=== PATIENT | female | born 1960 | race Caucasian/White ===

== ENCOUNTER 2019-04-19 05:45 | Inpatient (IN) | payer MEDICARE, OTHER ==
[2019-04-19 06:54] VITALS: BP 100/62
[2019-04-19] MEDS ORDERED: Maalox 30 mL Cup PO PRN (07:04)
[2019-04-19] MEDS ORDERED: Magnesium Hydroxide (MOM) 30 mL UDC PO PRN (07:04)
[2019-04-20] MEDS ORDERED: Pneumococcal Vaccine 0.5 mL Vial IM ONE (10:00)
--- NOTE | 2019-04-20 10:04 | Progress Notes ---
DATE: SUBJECTIVE: Chart was reviewed and the patient interviewed. Also discussed the patient's condition with the staff and reviewed records and labs. The patient continued to be exhibiting manic behavior and this morning, the patient woke up early and the patient was dancing and was restless and was not able to follow directions. The patient also was easily irritable and is still having severe mood swings. Otherwise, the patient is compliant with taking her medications with no side effects of medications. ASSESSMENT: The patient is still exhibiting manic behavior and is still in irritable mood. TREATMENT PLAN: Continue to monitor behavior and condition closely. Also, continue adjusting psychotropic medications and working on behavioral modification. Also, we will add Seroquel in a dose of 50 mg twice a day and follow up. JOB# [id number]
--- NOTE | 2019-04-20 12:30 | History and Physical ---
History of Present Illness - HPI Chief Complaint: transfer from [facility] medically cleared HPI: This is a 58-year old female transferred to [facility] who is medically cleared. Patient has a past medical history of schizophrenia, encephalopathy. Vital Signs: Last Vital Signs Temp 97.8 F 04/20/19 06:26 Pulse 81 04/20/19 06:26 Resp 19 04/20/19 06:26 BP 102/57 04/20/19 06:26 Pulse Ox 97 04/20/19 06:26 Past Medical History Other History: schizophrenia Social History Smoke: No Alcohol: None Drugs: None Lives: [facility] - Medications Home Medications: Home Medication Medication Instructions Recorded Type Benztropine [Cogentin] 1 mg PO DAILY 04/19/19 History OLANZapine [ZyPREXA] 5 mg PO BID 04/19/19 History Simvastatin [Zocor*] 20 mg PO HS 04/19/19 History hydrOXYzine Pamoate [Vistaril] 25 mg PO BID 04/19/19 History traZODone HCl [Desyrel*] 50 mg PO HS 04/19/19 History - Allergies Allergies/Adverse Reactions: Allergies Allergy/AdvReac Type Severity Reaction Status Date / Time No Known Allergies Allergy Verified 04/19/19 06:53 Review of Systems - Review of Systems Constitutional: Report: No Significant Eyes: Report: No Significant Respiratory: Report: No Significant Cardiovascular: Report: No Significant Neurological: Report: No Significant Physical Exam - Physical Exam HEENT: Report: Ears Nose Throat within normal limits Neck: Report: Within normal limits Cardiovascular Systems: Report: +s1/s2 noted, Regular, Rate and Rhythm Respiratory: Report: Breath Sounds are within normal limits Abdomen: Report: Non-tender to palpation Back: Report: Inspection of back is within normal limits. Skin: Report: Warm, Dry Neuro/Psych: Report: Mood affect is within normal limits - Assessment Assessment: schizophrenia hx encephalopathy - Plan Plan: fall precautions continue home meds monitor patient daily
--- NOTE | 2019-04-20 21:12 | Psychiatric Evaluation ---
DATE OF SERVICE: 04/19/2019 PSYCHIATRIC INITIAL EVALUATION AGE: 58. SEX: Female. PHYSICIAN: Dr. Chavez. CHIEF COMPLAINT: Confusion and grave disability. HISTORY OF PRESENT ILLNESS: The patient is a 58-year-old female who was transferred from [facility] to [facility]. The patient eventually was dropped from a ____ to the hospital. The person who was driving her from the ____ did not give any report and took off after she dropped her. The patient is confused and she is not able to give any questions. The patient also was paranoid during my interview. The patient also was not able to give any information including when was last time she ate or drank and she was not able to make any sense. The patient also told me that she has one son, but she was not able to give me any information about her son and was not able to get any other information from the patient. The patient was diagnosed with encephalopathy. She was not able to give me any other information at this time. She also seems to be paranoid and kept looking out of the window during my interview. PAST PSYCHIATRIC HISTORY: Not known. PAST MEDICAL HISTORY: The patient did not mention anything and unable to know because of her poor historian. SOCIAL HISTORY: Unknown at this time, but the patient said that she has 1 son and she does not know where he lives and she could not give me any other details. ALLERGIES: No known allergies. MENTAL STATUS EXAMINATION: The patient appears older than her stated age. Unkempt. Long hair and the patient kept moving her hair from one side to another and at times it was covering her face. The patient seems to be preoccupied and paranoid and kept looking outside the window. Her thought processes are with poverty of speech and also disorganized. The patient did not answer question regarding auditory or visual hallucination, but seems to be actively responding and preoccupied and paranoid. The patient denied suicidal or homicidal ideations. The patient is alert, but confused and seems to be disoriented to place, person and situation. Unable to assess her memory at this time because the patient was not able to answer any of my questions because of her confusion. Poor insight and poor judgment. ASSESSMENT: PRIMARY DIAGNOSIS: Unspecified psychosis. TREATMENT PLAN: We will monitor the patient's behavior and condition closely. We will try to reevaluate the patient and try to get more information from the patient when clear. Also, we will give the patient small dose of Risperdal and hopefully that will help with her psychosis. ESTIMATED LENGTH OF STAY: 5-7 days. PATIENT'S STRENGTHS AND WEAKNESSES: The patient's strength is not clear at this time. Weaknesses is poor historian and inability to give information because of her confusion. AFTER DISCHARGE PLAN: The patient might need placement and outpatient treatment and followup. We will continue as an outpatient. JOB# [id number]
--- NOTE | 2019-04-21 14:14 | Internal Medicine Prog Note ---
Internal Medicine Subjective - Subjective Service Date: 04/21/19 Patient seen and examined:: with staff Patient is:: awake, verbal, agitated, confused Patient Complaints of:: other (Hx of Schizophrenia.) Per staff patient has:: no adverse event, no episodes of fall Internal Medicine Objective - Physical Exam Vitals and I&O: Vital Signs Temp 97.7 F 04/21/19 06:19 Pulse 68 04/21/19 06:19 Resp 20 04/21/19 06:19 BP 116/67 04/21/19 06:19 Pulse Ox 96 04/21/19 06:19 Intake & Output 04/20/19 04/21/19 04/21/19 18:59 06:59 18:59 Intake Total 1100 600 Balance 1100 600 Intake: Oral 740 600 Other 360 Other: # Voids 4 2 # Bowel Movements 1 0 Active Medications: Current Medications Acetaminophen (Tylenol) 650 mg PO Q4HR PRN PRN Reason: Mild Pain / Temp above 100 Stop: 06/18/19 07:03 Al Hydrox/Mg Hydrox/Simethicone (Maalox) 30 ml PO Q4HR PRN PRN Reason: GI DISTRESS Stop: 06/18/19 07:03 Benztropine Mesylate (Cogentin) 1 mg PO DAILY [facility] Stop: 06/19/19 08:59 Last Admin: 04/21/19 08:58 Dose: 1 mg Hydroxyzine Pamoate (Vistaril) 25 mg PO BID ON [facility] OF [facility]; Protocol Stop: 06/19/19 08:59 Last Admin: 04/21/19 08:59 Dose: 25 mg Lorazepam (Ativan) 0.5 mg PO Q4HR PRN; Protocol PRN Reason: Agitation Stop: 05/19/19 07:03 Last Admin: 04/21/19 08:59 Dose: 0.5 mg Magnesium Hydroxide (Milk Of Magnesia) 30 ml PO HS PRN PRN Reason: Constipation Olanzapine (Zyprexa) 5 mg PO BID ON LICENSE OF [facility]; Protocol Stop: 06/18/19 08:59 Last Admin: 04/21/19 08:58 Dose: 5 mg Quetiapine Fumarate (Seroquel) 50 mg PO BID ON LICENSE OF [facility]; Protocol Stop: 06/19/19 08:59 Last Admin: 04/21/19 08:57 Dose: 50 mg Simvastatin (Zocor) 20 mg PO HS ON LICENSE OF [facility]; Protocol Stop: 06/18/19 20:59 Last Admin: 04/20/19 21:29 Dose: 20 mg Zolpidem Tartrate (Ambien) 5 mg PO HS PRN PRN Reason: Insomnia Stop: 06/18/19 07:03 Last Admin: 04/20/19 21:30 Dose: 5 mg Physical Exam: Patient is very irritable and confused, continue monitoring closely. General: demented HEENT: NC/AT Neck: Supple, No JVD Lungs: CTAB Cardiovascular: RRR, Normal S1 Abdomen: soft, non-tender Extremities: clear Neurological: no change, disorganized Internal Medicine Assmt/Plan - Assessment Assessment: Schizophrenia. Encephalopathy. - Plan Plan: Continuation of care. Monitor vitals and labs. Monitor diet and nutritional support. Continue present meds as directed. Supportive care. Psych management per Psyche. Continue current treatment plan as ordered. Nutritional Asmnt/Malnutr-PDOC - Dietary Evaluation Malnutrition Findings (Please click <Entered> for more info): see orders.
--- NOTE | 2019-04-22 04:49 | Progress Notes ---
DATE: SUBJECTIVE: Chart was reviewed and the patient interviewed. Also discussed the patient's condition with the staff and reviewed records and labs. The patient is still restless and is still anxious. The patient also is still depressed and interacting minimally with others and she is still confused and easily agitated. The patient also still needs redirections. Otherwise, no side effects of medications. ASSESSMENT: The patient is still restless and agitated. TREATMENT PLAN: Continue to monitor behavior and condition closely. Also, continue adjusting psychotropic medications and working on behavioral modification. JOB# [id number]
--- NOTE | 2019-04-22 09:03 | Progress Notes ---
DATE: 04/22/2019 SUBJECTIVE: Chart reviewed and the patient interviewed. Also discussed the patient's condition with the staff and reviewed records and labs. The patient is still exhibiting manic behavior and she is still restless and in irritable mood. The patient also is still having severe mood swings. She also is still disheveled and is forgetful and confused and staff has to repeat orders and instructions multiple times in order for her to follow. Otherwise, the patient is compliant with taking her medications with no side effects of medications. C[place]shaw blood level that was done on 04/15 came back to be 0.6 and it was 0.27 on 04/02. TREATMENT PLAN: We will monitor her behavior and condition closely. Also, we will increase Seroquel to 75 mg twice a day and decrease Haldol to 2.5 mg twice a day and continue cross tapering Zyprexa and the Seroquel and we will continue to follow up. [facility]# [id number]
--- NOTE | 2019-04-22 15:27 | Internal Medicine Prog Note ---
Internal Medicine Subjective - Subjective Service Date: 04/22/19 Patient is:: awake, verbal, agitated, confused Patient Complaints of:: other (Hx of Schizophrenia.) Per staff patient has:: no adverse event, no episodes of fall Internal Medicine Objective - Physical Exam Vitals and I&O: Vital Signs Temp 98.7 F 04/22/19 14:00 Pulse 50 04/22/19 14:00 Resp 18 04/22/19 14:00 BP 92/69 04/22/19 14:00 Pulse Ox 96 04/22/19 14:00 Intake & Output 04/21/19 04/22/19 04/22/19 18:59 06:59 18:59 Intake Total 950 240 Balance 950 240 Intake: Oral 950 240 Other: # Voids 3 2 # Bowel Movements 1 Active Medications: Current Medications Acetaminophen (Tylenol) 650 mg PO Q4HR PRN PRN Reason: Mild Pain / Temp above 100 Stop: 06/18/19 07:03 Al Hydrox/Mg Hydrox/Simethicone (Maalox) 30 ml PO Q4HR PRN PRN Reason: GI DISTRESS Stop: 06/18/19 07:03 Benztropine Mesylate (Cogentin) 1 mg PO DAILY COUNT [facility]CLUD[facility] Stop: 06/22/19 08:59 Hydroxyzine Pamoate (Vistaril) 25 mg PO BID COUNT [facility]CLUDES THE [facility]; Protocol Stop: 06/19/19 08:59 Last Admin: 04/22/19 08:46 Dose: 25 mg Lorazepam (Ativan) 0.5 mg PO Q4HR PRN; Protocol PRN Reason: Agitation Stop: 05/19/19 07:03 Last Admin: 04/22/19 04:43 Dose: 0.5 mg Magnesium Hydroxide (Milk Of Magnesia) 30 ml PO HS PRN PRN Reason: Constipation Olanzapine (Zyprexa) 2.5 mg PO BID COUNT INCLUDES THE [facility]; Protocol Stop: 06/21/19 08:59 Last Admin: 04/22/19 08:46 Dose: 2.5 mg Quetiapine Fumarate 50 mg/ (Quetiapine Fumarate 25 mg) 75 mg PO BID [facility] Stop: 06/21/19 08:59 Last Admin: 04/22/19 08:46 Dose: 75 mg Simvastatin (Zocor) 20 mg PO HS [facility]; Protocol Stop: 06/18/19 20:59 Last Admin: 04/21/19 21:17 Dose: 20 mg Zolpidem Tartrate (Ambien) 5 mg PO HS PRN PRN Reason: Insomnia Stop: 06/18/19 07:03 Last Admin: 04/21/19 21:17 Dose: 5 mg General: demented HEENT: NC/AT Neck: Supple, No JVD Lungs: CTAB Cardiovascular: RRR, Normal S1 Abdomen: soft, non-tender Extremities: clear Neurological: no change, disorganized Internal Medicine Assmt/Plan - Assessment Assessment: schizophrenia hx encephalopathy - Plan Plan: fall precautions continue home meds monitor patient daily
--- NOTE | 2019-04-23 07:49 | Progress Notes ---
DATE: 04/23/2019 SUBJECTIVE: Chart was reviewed and the patient interviewed. Also discussed the patient's condition with the staff and reviewed records and labs. The patient is still exhibiting manic behavior and she is still confused and hyperverbal. The patient also almost did not sleep at all last night according to the staff. She also is still restless and pacing up and down the unit and entering other patient's rooms and causing disturbances to other patients. Also, during my interview with the patient, the patient is rambling and has difficulty following directions and needs prompt instructions. Otherwise, the patient is cooperative and compliant with taking medications with no side effects. ASSESSMENT: The patient is still exhibiting manic behavior and is still in irritable and angry mood. TREATMENT PLAN: Continue to monitor her behavior closely. Also, we will increase Seroquel to 75 mg twice a day and 75 mg at bedtime. At the same time, we will decrease Zyprexa to 2.5 at bedtime and continue to follow up closely. JOB# [id number]
[2019-04-23] MEDS: Benztropine 1 MG TAB PO SCH (08:21)
--- NOTE | 2019-04-23 12:37 | Internal Medicine Prog Note ---
Internal Medicine Subjective - Subjective Service Date: 04/23/19 Patient seen and examined:: with staff Patient is:: awake, verbal, agitated, confused Patient Complaints of:: other (Hx of Schizophrenia.) Per staff patient has:: no adverse event, no episodes of fall Internal Medicine Objective - Physical Exam Vitals and I&O: Vital Signs Temp 97.7 F 04/23/19 06:50 Pulse 76 04/23/19 06:50 Resp 20 04/23/19 08:00 BP 103/58 04/23/19 06:50 Pulse Ox 96 04/23/19 06:50 Intake & Output 04/22/19 04/23/19 04/23/19 18:59 06:59 18:59 Intake Total 1200 120 Balance 1200 120 Intake: Oral 1080 120 Other 120 Other: # Voids 3 1 # Bowel Movements 0 0 Active Medications: Current Medications Acetaminophen (Tylenol) 650 mg PO Q4HR PRN PRN Reason: Mild Pain / Temp above 100 Stop: 06/18/19 07:03 Al Hydrox/Mg Hydrox/Simethicone (Maalox) 30 ml PO Q4HR PRN PRN Reason: GI DISTRESS Stop: 06/18/19 07:03 Benztropine Mesylate (Cogentin) 1 mg PO DAILY [facility] Stop: 06/22/19 08:59 Last Admin: 04/23/19 08:21 Dose: 1 mg Hydroxyzine Pamoate (Vistaril) 25 mg PO BID [facility]; Protocol Stop: 06/19/19 08:59 Last Admin: 04/23/19 08:21 Dose: 25 mg Lorazepam (Ativan) 0.5 mg PO Q4HR PRN; Protocol PRN Reason: Agitation Stop: 05/19/19 07:03 Last Admin: 04/22/19 04:43 Dose: 0.5 mg Magnesium Hydroxide (Milk Of Magnesia) 30 ml PO HS PRN PRN Reason: Constipation Olanzapine (Zyprexa) 2.5 mg PO DAILY [facility]; Protocol Stop: 06/22/19 08:59 Last Admin: 04/23/19 08:21 Dose: 2.5 mg Quetiapine Fumarate 50 mg/ (Quetiapine Fumarate 25 mg) 75 mg PO BID [facility] Stop: 06/21/19 08:59 Last Admin: 04/23/19 08:22 Dose: 75 mg Quetiapine Fumarate 25 mg/ (Quetiapine Fumarate 50 mg) 75 mg PO HS [facility] Stop: 06/22/19 20:59 Simvastatin (Zocor) 20 mg PO HS [facility]; Protocol Stop: 06/18/19 20:59 Last Admin: 04/22/19 20:30 Dose: 20 mg Zolpidem Tartrate (Ambien) 5 mg PO HS PRN PRN Reason: Insomnia Stop: 06/18/19 07:03 Last Admin: 04/22/19 20:30 Dose: 5 mg Physical Exam: Patient still having Manic behavior, agitated easily having outbursts, needs close monitoring. General: demented HEENT: NC/AT Neck: Supple, No JVD Lungs: CTAB Cardiovascular: RRR, Normal S1 Abdomen: soft, non-tender Extremities: clear Neurological: no change, disorganized Internal Medicine Assmt/Plan - Assessment Assessment: Schizophrenia. Encephalopathy. - Plan Plan: Continuation of care. Monitor vitals and labs. Monitor diet and nutritional support. Continue present meds as directed. Supportive care. Psych management per Psyche. Continue current treatment plan as ordered. Nutritional Asmnt/Malnutr-PDOC - Dietary Evaluation Malnutrition Findings (Please click <Entered> for more info): see orders.
[2019-04-24] MEDS: Benztropine 1 MG TAB PO SCH (08:50)
--- NOTE | 2019-04-24 09:29 | Progress Notes ---
DATE: 04/24/2019 SUBJECTIVE: Chart reviewed and the patient interviewed. Also discussed the patient's condition with the staff and reviewed records and labs. The patient is still restless and is still wandering around the unit asking for cigarettes. The patient also still has difficulty sleeping at night and she is still exhibiting manic behavior. The patient also is still having severe mood swings. Otherwise, the patient is compliant with taking her medications with no side effects of medications. ASSESSMENT: The patient is still exhibiting manic behavior and the patient is still agitated. TREATMENT PLAN: We will increase Seroquel to 100 mg twice a day and 125 mg at bedtime. Also, we will stop Zyprexa since the patient already has a higher dose of Seroquel and we will continue to follow up. [facility]# [id number]
--- NOTE | 2019-04-24 17:08 | Internal Medicine Prog Note ---
Internal Medicine Subjective - Subjective Service Date: 04/24/19 Patient is:: awake, verbal, agitated, confused Patient Complaints of:: other (Hx of Schizophrenia.) Per staff patient has:: no adverse event, no episodes of fall Internal Medicine Objective - Physical Exam Vitals and I&O: Vital Signs Temp 98.6 F 04/24/19 14:00 Pulse 81 04/24/19 14:00 Resp 20 04/24/19 14:00 BP 111/58 04/24/19 14:00 Pulse Ox 97 04/24/19 14:00 Intake & Output 04/23/19 04/24/19 04/24/19 18:59 06:59 18:59 Intake Total 900 120 Balance 900 120 Intake: Oral 900 120 Other: # Voids 3 1 # Bowel Movements 1 0 Active Medications: Current Medications Acetaminophen (Tylenol) 650 mg PO Q4HR PRN PRN Reason: Mild Pain / Temp above 100 Stop: 06/18/19 07:03 Al Hydrox/Mg Hydrox/Simethicone (Maalox) 30 ml PO Q4HR PRN PRN Reason: GI DISTRESS Stop: 06/18/19 07:03 Benztropine Mesylate (Cogentin) 1 mg PO DAILY [facility] Stop: 06/22/19 08:59 Last Admin: 04/24/19 08:50 Dose: 1 mg Hydroxyzine Pamoate (Vistaril) 25 mg PO BID [facility]; Protocol Stop: 06/19/19 08:59 Last Admin: 04/24/19 08:49 Dose: 25 mg Lorazepam (Ativan) 0.5 mg PO Q4HR PRN; Protocol PRN Reason: Agitation Stop: 05/19/19 07:03 Last Admin: 04/23/19 22:21 Dose: 0.5 mg Magnesium Hydroxide (Milk Of Magnesia) 30 ml PO HS PRN PRN Reason: Constipation Quetiapine Fumarate 100 mg/ (Quetiapine Fumarate 25 mg) 125 mg PO HS [facility] Stop: 06/23/19 20:59 Quetiapine Fumarate (Seroquel) 100 mg PO BID [facility] Stop: 06/23/19 10:29 Simvastatin (Zocor) 20 mg PO HS [facility]; Protocol Stop: 06/18/19 20:59 Last Admin: 04/23/19 20:15 Dose: 20 mg Zolpidem Tartrate (Ambien) 5 mg PO HS PRN PRN Reason: Insomnia Stop: 06/18/19 07:03 Last Admin: 04/24/19 00:25 Dose: 5 mg General: demented HEENT: NC/AT Neck: Supple, No JVD Lungs: CTAB Cardiovascular: RRR, Normal S1 Abdomen: soft, non-tender Extremities: clear Neurological: no change, disorganized Internal Medicine Assmt/Plan - Assessment Assessment: schizophrenia hx encephalopathy - Plan Plan: fall precautions continue home meds monitor patient daily Nutritional Asmnt/Malnutr-PDOC - Dietary Evaluation Malnutrition Findings (Please click <Entered> for more info): Nutritional Asmnt/Malnutrition Start: 04/23/19 16: 32 Text: Status: Active Freq: Protocol: Document 04/23/19 16:32 MACK (Rec: 04/23/19 16:36 [id number]) Nutritional Asmnt/Malnutrition Patient General Information Nutritional Screening Low Risk Diagnosis Psychosis Pertinent Medical Hx/Surgical Hx Schizophrenia, Encephalopathy Subjective Information Pt is a 58-year-old female admitted on 04/19. Pt is eating an estimated 70% of meals Per Meal/Nutrition Activity Record. Dietary is currently providing an estimated 2600 kcals and 110 gm Pro, per Pt PO intake this is providing an estimated 1820 kcals and 77gm Pro to meet 100+% kcal and 100+% Pro needs . Anthropometrics HT: 5 FT WT: 106 LB (48.18 kg) BMI: 20.72 (normal) GI/ Skin Integrity GI: WNL, no symptoms BM: 04/22 x1 I/O: 1320/Not Noted Skin: WNL Charlie: 20 Diet Order: Mechanical Soft Estimated Energy Needs: ( Geriatric, CBW) 9902-3480 kcals (25-30 kcals/ kg) 50-60g Pro (1.0-1.2 g/kg) 4101-8898 ml (25-30 ml/kg) Current Diet Order/ Nutrition Support Mechanical Soft Pertinent Medications Maalox (PRN), MOM (PRN) Pertinent Labs Lipid Panel and A1c Pending, ordered 04/19/2019 Nutritional Hx/Data Height 5 ft Height (Calculated Centimeters) 152.4 Current Weight (lbs) 106 lb Weight (Calculated Kilograms) 48.1 Weight (Calculated Grams) 85354.8 [place] Body Weight 100 LB (45.45 kg) % [place] Body Weight 106 Body Mass Index (BMI) 20.7 Weight Status Approriate GI Symptoms GI Symptoms None Last BM 04/22 x1 Skin Integrity/Comment: Skin: WNL Charlie: 20 Current %PO Fair (50-74%) Estimated Nutritional Goals BEE in Kcals: Using Current wt Calories/Kcals/Kg 25-30 Kcals Calculated 1889-0440 Protein: Using Current wt Protein g/k.0-1.2 Protein Calculated 50-60 Fluid: ml 0770-4061 ml (25-30 ml/kg) Nutritional Problem No current Nutrition Prob Problem No nutrition diagnosis at this time. Etiology N/A Signs/Symptoms: N/A Malnutrition Related to Morbid Obesity Malnutrition related to morbid obesity No Intervention/Recommendation Comments Continue Mechanical Soft diet as tolerated. Expected Outcomes/Goals Expected Outcomes/Goals 8.PO intake to continue to meet >75% of estimated nutritional needs. 9.Monitor PO intake, wt, nutrition related labs, and skin integrity. 10.F/U as low risk in 7-10 days, 04/30-05/03
[2019-04-25] MEDS: Benztropine 1 MG TAB PO SCH (08:58)
--- NOTE | 2019-04-25 15:28 | Internal Medicine Prog Note ---
Internal Medicine Subjective - Subjective Service Date: 04/25/19 Patient seen and examined:: with staff Patient is:: awake, verbal, agitated, confused Patient Complaints of:: other (Hx of Schizophrenia.) Per staff patient has:: no adverse event, no episodes of fall Internal Medicine Objective - Physical Exam Vitals and I&O: Vital Signs Temp 97.6 F 04/25/19 14:00 Pulse 8 04/25/19 14:00 Resp 20 04/25/19 14:00 BP 115/60 04/25/19 14:00 Pulse Ox 96 04/25/19 14:00 Intake & Output 04/24/19 04/25/19 04/25/19 18:59 06:59 18:59 Intake Total 1000 360 Balance 1000 360 Intake: Oral 1000 360 Other: # Voids 3 2 # Bowel Movements 0 0 Active Medications: Current Medications Acetaminophen (Tylenol) 650 mg PO Q4HR PRN PRN Reason: Mild Pain / Temp above 100 Stop: 06/18/19 07:03 Al Hydrox/Mg Hydrox/Simethicone (Maalox) 30 ml PO Q4HR PRN PRN Reason: GI DISTRESS Stop: 06/18/19 07:03 Benztropine Mesylate (Cogentin) 1 mg PO DAILY [facility] Stop: 06/22/19 08:59 Last Admin: 04/25/19 08:58 Dose: 1 mg Hydroxyzine Pamoate (Vistaril) 25 mg PO BID [facility]; Protocol Stop: 06/19/19 08:59 Last Admin: 04/25/19 08:59 Dose: 25 mg Lorazepam (Ativan) 0.5 mg PO Q4HR PRN; Protocol PRN Reason: Agitation Stop: 05/19/19 07:03 Last Admin: 04/25/19 08:59 Dose: 0.5 mg Magnesium Hydroxide (Milk Of Magnesia) 30 ml PO HS PRN PRN Reason: Constipation Quetiapine Fumarate 100 mg/ (Quetiapine Fumarate 25 mg) 125 mg PO HS [facility] Stop: 06/23/19 20:59 Last Admin: 04/24/19 20:19 Dose: 125 mg Quetiapine Fumarate (Seroquel) 100 mg PO BID [facility] Stop: 06/23/19 10:29 Last Admin: 04/25/19 08:58 Dose: 100 mg Simvastatin (Zocor) 20 mg PO HS [facility]; Protocol Stop: 06/18/19 20:59 Last Admin: 04/24/19 20:20 Dose: 20 mg Zolpidem Tartrate (Ambien) 5 mg PO HS PRN PRN Reason: Insomnia Stop: 06/18/19 07:03 Last Admin: 04/25/19 01:01 Dose: 5 mg Physical Exam: Patient continue to have Manic behavior, very irritable and aggressive, needs close monitoring. General: demented HEENT: NC/AT Neck: Supple, No JVD Lungs: CTAB Cardiovascular: RRR, Normal S1 Abdomen: soft, non-tender Extremities: clear Neurological: no change, disorganized Internal Medicine Assmt/Plan - Assessment Assessment: Schizophrenia. Encephalopathy. Manic behavior/Agitated. Hx of Psychosis. - Plan Plan: Continuation of care. Monitor vitals and labs. Monitor diet and nutritional support. Continue present meds as directed. Supportive care. Psych management per Psyche. Continue current treatment plan as ordered. Nutritional Asmnt/Malnutr-PDOC - Dietary Evaluation Malnutrition Findings (Please click <Entered> for more info): Nutritional Asmnt/Malnutrition Start: 04/23/19 16: 32 Text: Status: Active Freq: Protocol: Document 04/23/19 16:32 MACK (Rec: 04/23/19 16:36 [email or web address]) Nutritional Asmnt/Malnutrition Patient General Information Nutritional Screening Low Risk Diagnosis Psychosis Pertinent Medical Hx/Surgical Hx Schizophrenia, Encephalopathy Subjective Information Pt is a 58-year-old female admitted on 04/19. Pt is eating an estimated 70% of meals Per Meal/Nutrition Activity Record. Dietary is currently providing an estimated 2600 kcals and 110 gm Pro, per Pt PO intake this is providing an estimated 1820 kcals and 77gm Pro to meet 100+% kcal and 100+% Pro needs . Anthropometrics HT: 5 FT WT: 106 LB (48.18 kg) BMI: 20.72 (normal) GI/ Skin Integrity GI: WNL, no symptoms BM: 04/22 x1 I/O: 1320/Not Noted Skin: WNL Charlie: 20 Diet Order: Mechanical Soft Estimated Energy Needs: ( Geriatric, CBW) 0634-0486 kcals (25-30 kcals/ kg) 50-60g Pro (1.0-1.2 g/kg) 2955-5638 ml (25-30 ml/kg) Current Diet Order/ Nutrition Support Mechanical Soft Pertinent Medications Maalox (PRN), MOM (PRN) Pertinent Labs Lipid Panel and A1c Pending, ordered 04/19/2019 Nutritional Hx/Data Height 1.52 m Height (Calculated Centimeters) 152.4 Current Weight (lbs) 48.081 kg Weight (Calculated Kilograms) 48.1 Weight (Calculated Grams) 85927.8 [place] Body Weight 100 LB (45.45 kg) % [place] Body Weight 106 Body Mass Index (BMI) 20.7 Weight Status Approriate GI Symptoms GI Symptoms None Last BM 04/22 x1 Skin Integrity/Comment: Skin: WNL Charlie: 20 Current %PO Fair (50-74%) Estimated Nutritional Goals BEE in Kcals: Using Current wt Calories/Kcals/Kg 25-30 Kcals Calculated 0726-2900 Protein: Using Current wt Protein g/k.0-1.2 Protein Calculated 50-60 Fluid: ml 9130-6980 ml (25-30 ml/kg) Nutritional Problem No current Nutrition Prob Problem No nutrition diagnosis at this time. Etiology N/A Signs/Symptoms: N/A Malnutrition Related to Morbid Obesity Malnutrition related to morbid obesity No Intervention/Recommendation Comments Continue Mechanical Soft diet as tolerated. Expected Outcomes/Goals Expected Outcomes/Goals 8.PO intake to continue to meet >75% of estimated nutritional needs. 9.Monitor PO intake, wt, nutrition related labs, and skin integrity. 10.F/U as low risk in 7-10 days, 04/30-05/03
[2019-04-26] MEDS: Benztropine 1 MG TAB PO SCH (08:28)
--- NOTE | 2019-04-26 16:37 | Internal Medicine Prog Note ---
Internal Medicine Subjective - Subjective Service Date: 04/26/19 Patient seen and examined:: with staff Patient is:: awake, verbal, agitated, confused Patient Complaints of:: other (Hx of Schizophrenia.) Per staff patient has:: no adverse event, no episodes of fall Internal Medicine Objective - Physical Exam Vitals and I&O: Vital Signs Temp 97.8 F 04/26/19 14:00 Pulse 76 04/26/19 14:00 Resp 20 04/26/19 14:00 BP 106/68 04/26/19 14:00 Pulse Ox 98 04/26/19 14:00 Intake & Output 04/25/19 04/26/19 04/26/19 18:59 06:59 18:59 Intake Total 1300 480 Balance 1300 480 Intake: Oral 1300 480 Other: # Voids 3 1 # Bowel Movements 0 Active Medications: Current Medications Acetaminophen (Tylenol) 650 mg PO Q4HR PRN PRN Reason: Mild Pain / Temp above 100 Stop: 06/18/19 07:03 Al Hydrox/Mg Hydrox/Simethicone (Maalox) 30 ml PO Q4HR PRN PRN Reason: GI DISTRESS Stop: 06/18/19 07:03 Benztropine Mesylate (Cogentin) 1 mg PO DAILY [facility] Stop: 06/22/19 08:59 Last Admin: 04/26/19 08:28 Dose: 1 mg Hydroxyzine Pamoate (Vistaril) 25 mg PO BID [facility]; Protocol Stop: 06/19/19 08:59 Last Admin: 04/26/19 08:28 Dose: 25 mg Lorazepam (Ativan) 0.5 mg PO Q4HR PRN; Protocol PRN Reason: Agitation Stop: 05/19/19 07:03 Last Admin: 04/26/19 11:20 Dose: 0.5 mg Magnesium Hydroxide (Milk Of Magnesia) 30 ml PO HS PRN PRN Reason: Constipation Quetiapine Fumarate 100 mg/ (Quetiapine Fumarate 25 mg) 125 mg PO HS [facility] Stop: 06/23/19 20:59 Last Admin: 04/25/19 21:31 Dose: 125 mg Quetiapine Fumarate (Seroquel) 100 mg PO BID [facility] Stop: 06/23/19 10:29 Last Admin: 04/26/19 08:30 Dose: 100 mg Simvastatin (Zocor) 20 mg PO HS [facility]; Protocol Stop: 06/18/19 20:59 Last Admin: 04/25/19 21:31 Dose: 20 mg Zolpidem Tartrate (Ambien) 5 mg PO HS PRN PRN Reason: Insomnia Stop: 06/18/19 07:03 Last Admin: 04/25/19 21:31 Dose: 5 mg Physical Exam: Patient has been having mood swings with hostile behavior, needs close monitoring. General: demented HEENT: NC/AT Neck: Supple, No JVD Lungs: CTAB Cardiovascular: RRR, Normal S1 Abdomen: soft, non-tender Extremities: clear Neurological: no change, disorganized Internal Medicine Assmt/Plan - Assessment Assessment: Schizophrenia. Encephalopathy. Manic behavior/Agitated. Hx of Psychosis. - Plan Plan: Continuation of care. Monitor vitals and labs. Monitor diet and nutritional support. Continue present meds as directed. Supportive care. Psych management per Psyche. Continue current treatment plan as ordered. Nutritional Asmnt/Malnutr-PDOC - Dietary Evaluation Malnutrition Findings (Please click <Entered> for more info): Nutritional Asmnt/Malnutrition Start: 04/23/19 16: 32 Text: Status: Active Freq: Protocol: Document 04/23/19 16:32 MACK (Rec: 04/23/19 16:36 [email or web address]) Nutritional Asmnt/Malnutrition Patient General Information Nutritional Screening Low Risk Diagnosis Psychosis Pertinent Medical Hx/Surgical Hx Schizophrenia, Encephalopathy Subjective Information Pt is a 58-year-old female admitted on 04/19. Pt is eating an estimated 70% of meals Per Meal/Nutrition Activity Record. Dietary is currently providing an estimated 2600 kcals and 110 gm Pro, per Pt PO intake this is providing an estimated 1820 kcals and 77gm Pro to meet 100+% kcal and 100+% Pro needs . Anthropometrics HT: 5 FT WT: 106 LB (48.18 kg) BMI: 20.72 (normal) GI/ Skin Integrity GI: WNL, no symptoms BM: 04/22 x1 I/O: 1320/Not Noted Skin: WNL Charlie: 20 Diet Order: Mechanical Soft Estimated Energy Needs: ( Geriatric, CBW) 7863-5789 kcals (25-30 kcals/ kg) 50-60g Pro (1.0-1.2 g/kg) 1127-5413 ml (25-30 ml/kg) Current Diet Order/ Nutrition Support Mechanical Soft Pertinent Medications Maalox (PRN), MOM (PRN) Pertinent Labs Lipid Panel and A1c Pending, ordered 04/19/2019 Nutritional Hx/Data Height 1.52 m Height (Calculated Centimeters) 152.4 Current Weight (lbs) 48.081 kg Weight (Calculated Kilograms) 48.1 Weight (Calculated Grams) 97616.8 [place] Body Weight 100 LB (45.45 kg) % [place] Body Weight 106 Body Mass Index (BMI) 20.7 Weight Status Approriate GI Symptoms GI Symptoms None Last BM 04/22 x1 Skin Integrity/Comment: Skin: WNL Charlie: 20 Current %PO Fair (50-74%) Estimated Nutritional Goals BEE in Kcals: Using Current wt Calories/Kcals/Kg 25-30 Kcals Calculated 4334-7681 Protein: Using Current wt Protein g/k.0-1.2 Protein Calculated 50-60 Fluid: ml 7428-1076 ml (25-30 ml/kg) Nutritional Problem No current Nutrition Prob Problem No nutrition diagnosis at this time. Etiology N/A Signs/Symptoms: N/A Malnutrition Related to Morbid Obesity Malnutrition related to morbid obesity No Intervention/Recommendation Comments Continue Mechanical Soft diet as tolerated. Expected Outcomes/Goals Expected Outcomes/Goals 8.PO intake to continue to meet >75% of estimated nutritional needs. 9.Monitor PO intake, wt, nutrition related labs, and skin integrity. 10.F/U as low risk in 7-10 days, 04/30-05/03
--- NOTE | 2019-04-26 18:15 | Progress Notes ---
DATE: 04/25/2019 SUBJECTIVE: Chart reviewed and the patient was interviewed. Also discussed the patient's condition with the staff and reviewed records and labs. The patient is still confused and restless. The patient also is sleeping poorly and she is still restless and argumentative. The patient also is still exhibiting manic behavior and hyperverbal and hyper-talkative. She also easily agitated and restless. Otherwise, the patient continued to comply with taking her medication and it seems slightly easier to redirect her since Seroquel was increased. ASSESSMENT: The patient is still exhibiting manic behavior. TREATMENT PLAN: Continue to monitor behavior and condition closely. Also, continue adjusting psychotropic medications and working on behavioral modification. [facility]# [id number]
--- NOTE | 2019-04-26 18:54 | Progress Notes ---
DATE: 04/26/2019 The patient is still having episodes of yelling and screaming. The patient also has been confused and demanding to smoke. She also is still restless and still needs redirections. She also still has trouble sleeping all night, although it seems that she is feeling slightly better since the change in her medications. The patient has no side effects of medications. ASSESSMENT: The patient is still exhibiting manic behavior and irritability. TREATMENT PLAN: Continue to monitor behavior and condition and continue adjusting medications and work on behavioral modification. JOB# [id number]
[2019-04-27] MEDS: Benztropine 1 MG TAB PO SCH (08:41)
--- NOTE | 2019-04-27 16:41 | Internal Medicine Prog Note ---
Internal Medicine Subjective - Subjective Patient is:: awake, verbal, agitated, confused Patient Complaints of:: other (Hx of Schizophrenia.) Per staff patient has:: no adverse event, no episodes of fall Internal Medicine Objective - Physical Exam Vitals and I&O: Vital Signs Temp 97.8 F 04/27/19 14:00 Pulse 75 04/27/19 14:00 Resp 20 04/27/19 14:00 BP 95/55 04/27/19 14:00 Pulse Ox 66 04/27/19 14:00 Intake & Output 04/26/19 04/27/19 04/27/19 18:59 06:59 18:59 Intake Total 1000 120 Balance 1000 120 Intake: Oral 1000 120 Other: # Voids 4 3 # Bowel Movements 1 Active Medications: Current Medications Acetaminophen (Tylenol) 650 mg PO Q4HR PRN PRN Reason: Mild Pain / Temp above 100 Stop: 06/18/19 07:03 Al Hydrox/Mg Hydrox/Simethicone (Maalox) 30 ml PO Q4HR PRN PRN Reason: GI DISTRESS Stop: 06/18/19 07:03 Benztropine Mesylate (Cogentin) 1 mg PO DAILY [facility] Stop: 06/22/19 08:59 Last Admin: 04/27/19 08:41 Dose: 1 mg Hydroxyzine Pamoate (Vistaril) 25 mg PO BID [facility]; Protocol Stop: 06/19/19 08:59 Last Admin: 04/27/19 16:12 Dose: 25 mg Lorazepam (Ativan) 0.5 mg PO Q4HR PRN; Protocol PRN Reason: Agitation Stop: 06/25/19 22:25 Last Admin: 04/27/19 16:14 Dose: 0.5 mg Magnesium Hydroxide (Milk Of Magnesia) 30 ml PO HS PRN PRN Reason: Constipation Quetiapine Fumarate 100 mg/ (Quetiapine Fumarate 25 mg) 125 mg PO HS [facility] Stop: 06/23/19 20:59 Last Admin: 04/26/19 20:17 Dose: 125 mg Quetiapine Fumarate (Seroquel) 100 mg PO BID [facility] Stop: 06/23/19 10:29 Last Admin: 04/27/19 16:13 Dose: 100 mg Simvastatin (Zocor) 20 mg PO HS [facility]; Protocol Stop: 06/18/19 20:59 Last Admin: 04/26/19 20:17 Dose: 20 mg Zolpidem Tartrate (Ambien) 5 mg PO HS PRN PRN Reason: Insomnia Stop: 06/25/19 22:59 General: demented, NAD HEENT: NC/AT Neck: Supple, No JVD Lungs: CTAB Cardiovascular: RRR Abdomen: soft, non-tender, hepatomegaly Extremities: clear Neurological: no change, disorganized Internal Medicine Assmt/Plan - Assessment Assessment: Schizophrenia Encephalopathy Manic behavior Agitation Hx Psychosis - Plan Plan: Continue current treatment plan. Monitor Labs. Continue current medications Continue to monitor VS Monitor Diet/Nutritional support. Psych management per Psychiatry. Pain Management. PT/OT prnSafety precaution, Fall precaution, frequent nursing round. Supportive care. Continue collaborating with consulting specialists, case management and nursing team Nutritional Asmnt/Malnutr-PDOC - Dietary Evaluation Malnutrition Findings (Please click <Entered> for more info): Nutritional Asmnt/Malnutrition Start: 04/23/19 16: 32 Text: Status: Active Freq: Protocol: Document 04/23/19 16:32 MACK (Rec: 04/23/19 16:36 [email or web address]) Nutritional Asmnt/Malnutrition Patient General Information Nutritional Screening Low Risk Diagnosis Psychosis Pertinent Medical Hx/Surgical Hx Schizophrenia, Encephalopathy Subjective Information Pt is a 58-year-old female admitted on 04/19. Pt is eating an estimated 70% of meals Per Meal/Nutrition Activity Record. Dietary is currently providing an estimated 2600 kcals and 110 gm Pro, per Pt PO intake this is providing an estimated 1820 kcals and 77gm Pro to meet 100+% kcal and 100+% Pro needs . Anthropometrics HT: 5 FT WT: 106 LB (48.18 kg) BMI: 20.72 (normal) GI/ Skin Integrity GI: WNL, no symptoms BM: 04/22 x1 I/O: 1320/Not Noted Skin: WNL [place]: 20 Diet Order: Mechanical Soft Estimated Energy Needs: ( Geriatric, CBW) 4575-6645 kcals (25-30 kcals/ kg) 50-60g Pro (1.0-1.2 g/kg) 0846-9602 ml (25-30 ml/kg) Current Diet Order/ Nutrition Support Mechanical Soft Pertinent Medications Maalox (PRN), MOM (PRN) Pertinent Labs Lipid Panel and A1c Pending, ordered 04/19/2019 Nutritional Hx/Data Height 5 ft Height (Calculated Centimeters) 152.4 Current Weight (lbs) 106 lb Weight (Calculated Kilograms) 48.1 Weight (Calculated Grams) 51904.8 [place] Body Weight 100 LB (45.45 kg) % [place] Body Weight 106 Body Mass Index (BMI) 20.7 Weight Status Approriate GI Symptoms GI Symptoms None Last BM 04/22 x1 Skin Integrity/Comment: Skin: WNL Charlie: 20 Current %PO Fair (50-74%) Estimated Nutritional Goals BEE in Kcals: Using Current wt Calories/Kcals/Kg 25-30 Kcals Calculated 7942-4352 Protein: Using Current wt Protein g/k.0-1.2 Protein Calculated 50-60 Fluid: ml 0540-6166 ml (25-30 ml/kg) Nutritional Problem No current Nutrition Prob Problem No nutrition diagnosis at this time. Etiology N/A Signs/Symptoms: N/A Malnutrition Related to Morbid Obesity Malnutrition related to morbid obesity No Intervention/Recommendation Comments Continue Mechanical Soft diet as tolerated. Expected Outcomes/Goals Expected Outcomes/Goals 8.PO intake to continue to meet >75% of estimated nutritional needs. 9.Monitor PO intake, wt, nutrition related labs, and skin integrity. 10.F/U as low risk in 7-10 days, 04/30-05/03
--- NOTE | 2019-04-27 19:01 | Progress Notes ---
DATE: 04/27/2019 SUBJECTIVE: Chart was reviewed and the patient interviewed. Also discussed the patient's condition with the staff and reviewed records and labs. The patient also is still yelling and screaming at times and demanding to smoke cigarettes. She still needs close monitoring and needs redirections. Otherwise, the patient is compliant with taking medications with no side effects. ASSESSMENT: The patient is still psychotic and still needs close monitoring. TREATMENT PLAN: Continue to work on her agitation and irritability and her manic behavior. Also, continue adjusting psychotropic medications and work on behavioral issue. JOB# [id number]
[2019-04-28] MEDS: Benztropine 1 MG TAB PO SCH (09:52)
--- NOTE | 2019-04-28 14:59 | Internal Medicine Prog Note ---
Internal Medicine Subjective - Subjective Service Date: 04/28/19 Patient seen and examined:: with staff Patient is:: awake, verbal, agitated, confused Patient Complaints of:: other (Hx of Schizophrenia.) Per staff patient has:: no adverse event, no episodes of fall Internal Medicine Objective - Physical Exam Vitals and I&O: Vital Signs Temp 98.1 F 04/28/19 14:00 Pulse 77 04/28/19 14:00 Resp 20 04/28/19 14:00 BP 107/64 04/28/19 14:00 Pulse Ox 95 04/28/19 14:00 Intake & Output 04/27/19 04/28/19 04/28/19 18:59 06:59 18:59 Intake Total 1200 120 Balance 1200 120 Intake: Oral 1080 120 Other 120 Other: # Voids 3 1 # Bowel Movements 0 1 Active Medications: Current Medications Acetaminophen (Tylenol) 650 mg PO Q4HR PRN PRN Reason: Mild Pain (Scale 1-3) Stop: 06/18/19 07:03 Acetaminophen (Tylenol) 650 mg PO Q4H PRN PRN Reason: TEMP ABOVE 100 Stop: 06/27/19 14:53 Al Hydrox/Mg Hydrox/Simethicone (Maalox) 30 ml PO Q4HR PRN PRN Reason: GI DISTRESS Stop: 06/18/19 07:03 Benztropine Mesylate (Cogentin) 1 mg PO DAILY [facility] Stop: 06/22/19 08:59 Last Admin: 04/28/19 09:52 Dose: 1 mg Hydroxyzine Pamoate (Vistaril) 25 mg PO BID [facility]; Protocol Stop: 06/19/19 08:59 Last Admin: 04/28/19 09:28 Dose: 25 mg Lorazepam (Ativan) 0.5 mg PO Q4HR PRN; Protocol PRN Reason: Agitation Stop: 06/25/19 22:25 Last Admin: 04/28/19 04:04 Dose: 0.5 mg Magnesium Hydroxide (Milk Of Magnesia) 30 ml PO HS PRN PRN Reason: Constipation Quetiapine Fumarate (Seroquel) 100 mg PO BID [facility] Stop: 06/23/19 10:29 Last Admin: 04/28/19 09:28 Dose: 100 mg Quetiapine Fumarate 100 mg/Quetiapine Fumarate 50 mg/Quetiapine Fumarate 25 mg 175 mg PO HS [facility] Stop: 06/27/19 20:59 Simvastatin (Zocor) 20 mg PO HS [facility]; Protocol Stop: 06/18/19 20:59 Last Admin: 04/27/19 20:58 Dose: 20 mg Zolpidem Tartrate (Ambien) 5 mg PO HS PRN PRN Reason: Insomnia Stop: 06/25/19 22:59 Physical Exam: Patient has been agitated and easily frustrated, continue monitoring. General: demented, NAD HEENT: NC/AT Neck: Supple, No JVD Lungs: CTAB Cardiovascular: RRR Abdomen: soft, non-tender, hepatomegaly Extremities: clear Neurological: no change, disorganized Internal Medicine Assmt/Plan - Assessment Assessment: Schizophrenia. Encephalopathy. Manic behavior/Agitated. Hx of Psychosis. - Plan Plan: Continuation of care. Monitor vitals and labs. Monitor diet and nutritional support. Continue present meds as directed. Supportive care. Psych management per Psyche. Continue current treatment plan as ordered. Nutritional Asmnt/Malnutr-PDOC - Dietary Evaluation Malnutrition Findings (Please click <Entered> for more info): Nutritional Asmnt/Malnutrition Start: 04/23/19 16: 32 Text: Status: Active Freq: Protocol: Document 04/23/19 16:32 MACK (Rec: 04/23/19 16:36 [email or web address] [email or web address]) Nutritional Asmnt/Malnutrition Patient General Information Nutritional Screening Low Risk Diagnosis Psychosis Pertinent Medical Hx/Surgical Hx Schizophrenia, Encephalopathy Subjective Information Pt is a 58-year-old female admitted on 04/19. Pt is eating an estimated 70% of meals Per Meal/Nutrition Activity Record. Dietary is currently providing an estimated 2600 kcals and 110 gm Pro, per Pt PO intake this is providing an estimated 1820 kcals and 77gm Pro to meet 100+% kcal and 100+% Pro needs . Anthropometrics HT: 5 FT WT: 106 LB (48.18 kg) BMI: 20.72 (normal) GI/ Skin Integrity GI: WNL, no symptoms BM: 04/22 x1 I/O: 1320/Not Noted Skin: WNL Charlie: 20 Diet Order: Mechanical Soft Estimated Energy Needs: ( Geriatric, CBW) 7048-7724 kcals (25-30 kcals/ kg) 50-60g Pro (1.0-1.2 g/kg) 4829-2635 ml (25-30 ml/kg) Current Diet Order/ Nutrition Support Mechanical Soft Pertinent Medications Maalox (PRN), MOM (PRN) Pertinent Labs Lipid Panel and A1c Pending, ordered 04/19/2019 Nutritional Hx/Data Height 1.52 m Height (Calculated Centimeters) 152.4 Current Weight (lbs) 48.081 kg Weight (Calculated Kilograms) 48.1 Weight (Calculated Grams) 70984.8 [place] Body Weight 100 LB (45.45 kg) % [place] Body Weight 106 Body Mass Index (BMI) 20.7 Weight Status Approriate GI Symptoms GI Symptoms None Last BM 04/22 x1 Skin Integrity/Comment: Skin: WNL Charlie: 20 Current %PO Fair (50-74%) Estimated Nutritional Goals BEE in Kcals: Using Current wt Calories/Kcals/Kg 25-30 Kcals Calculated 5902-3807 Protein: Using Current wt Protein g/k.0-1.2 Protein Calculated 50-60 Fluid: ml 2051-0320 ml (25-30 ml/kg) Nutritional Problem No current Nutrition Prob Problem No nutrition diagnosis at this time. Etiology N/A Signs/Symptoms: N/A Malnutrition Related to Morbid Obesity Malnutrition related to morbid obesity No Intervention/Recommendation Comments Continue Mechanical Soft diet as tolerated. Expected Outcomes/Goals Expected Outcomes/Goals 8.PO intake to continue to meet >75% of estimated nutritional needs. 9.Monitor PO intake, wt, nutrition related labs, and skin integrity. 10.F/U as low risk in 7-10 days, 04/30-05/03
[2019-04-29] MEDS: Benztropine 1 MG TAB PO SCH (08:45)
--- NOTE | 2019-04-29 09:49 | Progress Notes ---
DATE: 04/28/2019 SUBJECTIVE: Chart reviewed and the patient interviewed. Also discussed the patient's condition with the staff and reviewed records and labs. The patient is still easily agitated and she is still exhibiting manic behavior. The patient also is still pacing up and down the unit, but seems to be easier to redirect her at times. The patient also is still rambling, still has difficulty following directions. Also, preoccupied with smoke break. Otherwise, the patient is compliant with taking her medications with no side effects of medications. ASSESSMENT: The patient is still manicky and agitated. TREATMENT PLAN: Continue monitoring behavior and condition closely. Also, increase Seroquel to 100 mg twice a day and 175 mg at bedtime and continue to follow up closely. JOB# [id number]
--- NOTE | 2019-04-29 15:30 | Internal Medicine Prog Note ---
Internal Medicine Subjective - Subjective Service Date: 04/29/19 Patient is:: awake, verbal, agitated, confused Patient Complaints of:: other (Hx of Schizophrenia.) Per staff patient has:: no adverse event, no episodes of fall Internal Medicine Objective - Physical Exam Vitals and I&O: Vital Signs Temp 97.6 F 04/29/19 14:00 Pulse 74 04/29/19 14:00 Resp 18 04/29/19 14:00 BP 90/56 04/29/19 14:00 Pulse Ox 95 04/29/19 14:00 Intake & Output 04/28/19 04/29/19 04/29/19 18:59 06:59 18:59 Intake Total 1000 240 Balance 1000 240 Intake: Oral 1000 240 Other: # Voids 4 3 # Bowel Movements 1 0 Active Medications: Current Medications Acetaminophen (Tylenol) 650 mg PO Q4HR PRN PRN Reason: Mild Pain (Scale 1-3) Stop: 06/18/19 07:03 Last Admin: 04/28/19 16:41 Dose: 650 mg Acetaminophen (Tylenol) 650 mg PO Q4H PRN PRN Reason: TEMP ABOVE 100 Stop: 06/27/19 14:53 Al Hydrox/Mg Hydrox/Simethicone (Maalox) 30 ml PO Q4HR PRN PRN Reason: GI DISTRESS Stop: 06/18/19 07:03 Benztropine Mesylate (Cogentin) 1 mg PO DAILY [facility] Stop: 06/22/19 08:59 Last Admin: 04/29/19 08:45 Dose: 1 mg Hydroxyzine Pamoate (Vistaril) 25 mg PO BID [facility]; Protocol Stop: 06/19/19 08:59 Last Admin: 04/29/19 08:44 Dose: 25 mg Lorazepam (Ativan) 0.5 mg PO Q4HR PRN; Protocol PRN Reason: Agitation Stop: 06/25/19 22:25 Last Admin: 04/28/19 04:04 Dose: 0.5 mg Magnesium Hydroxide (Milk Of Magnesia) 30 ml PO HS PRN PRN Reason: Constipation Quetiapine Fumarate (Seroquel) 100 mg PO BID [facility] Stop: 06/23/19 10:29 Last Admin: 04/29/19 08:45 Dose: 100 mg Quetiapine Fumarate 100 mg/Quetiapine Fumarate 50 mg/Quetiapine Fumarate 25 mg 175 mg PO HS [facility] Stop: 06/27/19 20:59 Last Admin: 04/28/19 21:34 Dose: 175 mg Simvastatin (Zocor) 20 mg PO HS [facility]; Protocol Stop: 06/18/19 20:59 Last Admin: 04/28/19 21:34 Dose: 20 mg Zolpidem Tartrate (Ambien) 5 mg PO HS PRN PRN Reason: Insomnia Stop: 06/25/19 22:59 General: demented, NAD HEENT: NC/AT Neck: Supple, No JVD Lungs: CTAB Cardiovascular: RRR Abdomen: soft, non-tender, hepatomegaly Extremities: clear Neurological: no change, disorganized Internal Medicine Assmt/Plan - Assessment Assessment: schizophrenia hx encephalopathy - Plan Plan: fall precautions continue home meds monitor patient daily Nutritional Asmnt/Malnutr-PDOC - Dietary Evaluation Malnutrition Findings (Please click <Entered> for more info): Nutritional Asmnt/Malnutrition Start: 04/23/19 16: 32 Text: Status: Active Freq: Protocol: Document 04/23/19 16:32 MACK (Rec: 04/23/19 16:36 [email or web address]) Nutritional Asmnt/Malnutrition Patient General Information Nutritional Screening Low Risk Diagnosis Psychosis Pertinent Medical Hx/Surgical Hx Schizophrenia, Encephalopathy Subjective Information Pt is a 58-year-old female admitted on 04/19. Pt is eating an estimated 70% of meals Per Meal/Nutrition Activity Record. Dietary is currently providing an estimated 2600 kcals and 110 gm Pro, per Pt PO intake this is providing an estimated 1820 kcals and 77gm Pro to meet 100+% kcal and 100+% Pro needs . Anthropometrics HT: 5 FT WT: 106 LB (48.18 kg) BMI: 20.72 (normal) GI/ Skin Integrity GI: WNL, no symptoms BM: 04/22 x1 I/O: 1320/Not Noted Skin: WNL Charlie: 20 Diet Order: Mechanical Soft Estimated Energy Needs: ( Geriatric, CBW) 9972-9369 kcals (25-30 kcals/ kg) 50-60g Pro (1.0-1.2 g/kg) 0440-4577 ml (25-30 ml/kg) Current Diet Order/ Nutrition Support Mechanical Soft Pertinent Medications Maalox (PRN), MOM (PRN) Pertinent Labs Lipid Panel and A1c Pending, ordered 04/19/2019 Nutritional Hx/Data Height 5 ft Height (Calculated Centimeters) 152.4 Current Weight (lbs) 106 lb Weight (Calculated Kilograms) 48.1 Weight (Calculated Grams) 87832.8 [place] Body Weight 100 LB (45.45 kg) % [place] Body Weight 106 Body Mass Index (BMI) 20.7 Weight Status Approriate GI Symptoms GI Symptoms None Last BM 04/22 x1 Skin Integrity/Comment: Skin: WNL Charlie: 20 Current %PO Fair (50-74%) Estimated Nutritional Goals BEE in Kcals: Using Current wt Calories/Kcals/Kg 25-30 Kcals Calculated 7233-7634 Protein: Using Current wt Protein g/k.0-1.2 Protein Calculated 50-60 Fluid: ml 7557-7539 ml (25-30 ml/kg) Nutritional Problem No current Nutrition Prob Problem No nutrition diagnosis at this time. Etiology N/A Signs/Symptoms: N/A Malnutrition Related to Morbid Obesity Malnutrition related to morbid obesity No Intervention/Recommendation Comments Continue Mechanical Soft diet as tolerated. Expected Outcomes/Goals Expected Outcomes/Goals 8.PO intake to continue to meet >75% of estimated nutritional needs. 9.Monitor PO intake, wt, nutrition related labs, and skin integrity. 10.F/U as low risk in 7-10 days, 04/30-05/03
--- NOTE | 2019-04-29 22:52 | Progress Notes ---
DATE: 04/29/2019 SUBJECTIVE: Chart was reviewed and the patient interviewed. Also discussed the patient's condition with the staff and reviewed records and labs. The patient seems to be slightly less hyper and less manicky, but is still demanding and she is still constantly asking for smoke break and wants to smoke cigarettes. She also is still easily irritable and easily agitated. The patient also is still having mood swings and she is still in angry mood and needs constant redirections. Otherwise, the patient is compliant with taking her medications and the patient denies any side effects of medications. ASSESSMENT: The patient is still exhibiting manic behavior, but showing slight improvement. TREATMENT PLAN: Continue to monitor behavior and condition closely. Also, continue adjusting psychotropic medications and Seroquel was increased yesterday to 100 mg twice a day and 175 mg at bedtime. Continue same dose and continue to follow up closely. JOB# [id number]
[2019-04-30] MEDS: Benztropine 1 MG TAB PO SCH (08:42)
--- NOTE | 2019-04-30 20:42 | Internal Medicine Prog Note ---
Internal Medicine Subjective - Subjective Service Date: 04/30/19 Patient seen and examined:: with staff Patient is:: awake, verbal, agitated, confused Patient Complaints of:: other (Hx of Schizophrenia.) Per staff patient has:: no adverse event, no episodes of fall Internal Medicine Objective - Physical Exam Vitals and I&O: Vital Signs Temp 98.3 F 04/30/19 16:17 Pulse 78 04/30/19 16:17 Resp 18 04/30/19 16:17 BP 100/46 04/30/19 16:17 Pulse Ox 97 04/30/19 16:17 Intake & Output 04/30/19 04/30/19 05/01/19 06:59 18:59 06:59 Intake Total 360 Balance 360 Intake: Oral 360 Other: # Voids 1 # Bowel Movements 0 Active Medications: Current Medications Acetaminophen (Tylenol) 650 mg PO Q4HR PRN PRN Reason: Mild Pain (Scale 1-3) Stop: 06/18/19 07:03 Last Admin: 04/28/19 16:41 Dose: 650 mg Acetaminophen (Tylenol) 650 mg PO Q4H PRN PRN Reason: TEMP ABOVE 100 Stop: 06/27/19 14:53 Al Hydrox/Mg Hydrox/Simethicone (Maalox) 30 ml PO Q4HR PRN PRN Reason: GI DISTRESS Stop: 06/18/19 07:03 Benztropine Mesylate (Cogentin) 1 mg PO DAILY [facility] Stop: 06/22/19 08:59 Last Admin: 04/30/19 08:42 Dose: 1 mg Hydroxyzine Pamoate (Vistaril) 25 mg PO BID [facility]; Protocol Stop: 06/19/19 08:59 Last Admin: 04/30/19 18:00 Dose: 25 mg Lorazepam (Ativan) 0.5 mg PO Q4HR PRN; Protocol PRN Reason: Agitation Stop: 06/25/19 22:25 Last Admin: 04/28/19 04:04 Dose: 0.5 mg Magnesium Hydroxide (Milk Of Magnesia) 30 ml PO HS PRN PRN Reason: Constipation Quetiapine Fumarate (Seroquel) 100 mg PO BID [facility] Stop: 06/23/19 10:29 Last Admin: 04/30/19 18:00 Dose: 100 mg Quetiapine Fumarate (Seroquel) 200 mg PO HS [facility] Stop: 06/29/19 20:59 Simvastatin (Zocor) 20 mg PO HS [facility]; Protocol Stop: 06/18/19 20:59 Last Admin: 04/29/19 20:33 Dose: 20 mg Zolpidem Tartrate (Ambien) 5 mg PO HS PRN PRN Reason: Insomnia Stop: 06/25/19 22:59 Last Admin: 04/29/19 20:34 Dose: 5 mg Physical Exam: Patient is very aggressive, having mood swings, needs monitoring. General: demented, NAD HEENT: NC/AT Neck: Supple, No JVD Lungs: CTAB Cardiovascular: RRR Abdomen: soft, non-tender, hepatomegaly Extremities: clear Neurological: no change, disorganized Internal Medicine Assmt/Plan - Assessment Assessment: Schizophrenia. Encephalopathy. Manic behavior/Agitated. Hx of Psychosis. - Plan Plan: Continuation of care. Monitor vitals and labs. Monitor diet and nutritional support. Continue present meds as directed. Supportive care. Psych management per Psyche. Continue current treatment plan as ordered. Nutritional Asmnt/Malnutr-PDOC - Dietary Evaluation Malnutrition Findings (Please click <Entered> for more info): Nutritional Asmnt/Malnutrition Start: 04/23/19 16: 32 Text: Status: Active Freq: Protocol: Document 04/23/19 16:32 MACK (Rec: 04/23/19 16:36 [email or web address]) Nutritional Asmnt/Malnutrition Patient General Information Nutritional Screening Low Risk Diagnosis Psychosis Pertinent Medical Hx/Surgical Hx Schizophrenia, Encephalopathy Subjective Information Pt is a 58-year-old female admitted on 04/19. Pt is eating an estimated 70% of meals Per Meal/Nutrition Activity Record. Dietary is currently providing an estimated 2600 kcals and 110 gm Pro, per Pt PO intake this is providing an estimated 1820 kcals and 77gm Pro to meet 100+% kcal and 100+% Pro needs . Anthropometrics HT: 5 FT WT: 106 LB (48.18 kg) BMI: 20.72 (normal) GI/ Skin Integrity GI: WNL, no symptoms BM: 04/22 x1 I/O: 1320/Not Noted Skin: WNL Charlie: 20 Diet Order: Mechanical Soft Estimated Energy Needs: ( Geriatric, CBW) 1239-4230 kcals (25-30 kcals/ kg) 50-60g Pro (1.0-1.2 g/kg) 1801-9771 ml (25-30 ml/kg) Current Diet Order/ Nutrition Support Mechanical Soft Pertinent Medications Maalox (PRN), MOM (PRN) Pertinent Labs Lipid Panel and A1c Pending, ordered 04/19/2019 Nutritional Hx/Data Height 1.52 m Height (Calculated Centimeters) 152.4 Current Weight (lbs) 48.081 kg Weight (Calculated Kilograms) 48.1 Weight (Calculated Grams) 72793.8 [place] Body Weight 100 LB (45.45 kg) % [place] Body Weight 106 Body Mass Index (BMI) 20.7 Weight Status Approriate GI Symptoms GI Symptoms None Last BM 04/22 x1 Skin Integrity/Comment: Skin: WNL Charlie: 20 Current %PO Fair (50-74%) Estimated Nutritional Goals BEE in Kcals: Using Current wt Calories/Kcals/Kg 25-30 Kcals Calculated 9617-3995 Protein: Using Current wt Protein g/k.0-1.2 Protein Calculated 50-60 Fluid: ml 3909-1297 ml (25-30 ml/kg) Nutritional Problem No current Nutrition Prob Problem No nutrition diagnosis at this time. Etiology N/A Signs/Symptoms: N/A Malnutrition Related to Morbid Obesity Malnutrition related to morbid obesity No Intervention/Recommendation Comments Continue Mechanical Soft diet as tolerated. Expected Outcomes/Goals Expected Outcomes/Goals 8.PO intake to continue to meet >75% of estimated nutritional needs. 9.Monitor PO intake, wt, nutrition related labs, and skin integrity. 10.F/U as low risk in 7-10 days, 04/30-05/03
--- NOTE | 2019-04-30 23:04 | Progress Notes ---
DATE: 04/30/2019 DATE OF SERVICE: 04/30/2019 SUBJECTIVE: Chart reviewed and the patient interviewed. Also discussed the patient's condition with the staff and reviewed records and labs. The patient is still exhibiting manic behavior and she is still restless and pacing up and down the unit. The patient also still needs redirection, but it seems that it is slightly easier to redirect her. The patient also still at times gets agitated and suspicious and paranoid, but seems to be less. She is still obsessed with smoking and is still demanding to go to smoke. Otherwise, the patient is compliant with taking her medications with no side effects of medications. ASSESSMENT: The patient is still having manic behavior and agitated, but showing some improvement. TREATMENT PLAN: We will continue monitoring her behavior. We will increase Seroquel to 100 mg twice a day and 200 mg at bedtime and we will continue to follow up closely. JOB# [id number]
--- NOTE | 2019-05-01 07:42 | Progress Notes ---
DATE: SUBJECTIVE: Chart reviewed and the patient interviewed. Also discussed the patient's condition with the staff and reviewed records and labs. The patient continued to be in a manic episode and she is still intrusive to others and forgetful. Also today, the patient seems to be more focused on food and the same thing yesterday evening and less focused on smoking, like what she was doing in the last few days. The patient also still needs lots of redirections because of her yannick and her irritability. Also, during interview, the patient kept playing with her hair and bringing it from one side to another and she is still unable to carry and coherent to conversation for a long time. At the same time, the patient is interacting, but in a confused state and is still easily agitated. ASSESSMENT: The patient is still confused and still needs close monitoring. TREATMENT PLAN: Continue to monitor her behavior and her condition closely. Also, continue adjusting psychotropic medications and working on her manic behavior. Yesterday, Seroquel was changed to 100 mg in the morning and 200 mg at bedtime and we will continue same dose and followup. JOB# [id number]
[2019-05-01] MEDS: Benztropine 1 MG TAB PO SCH (08:09)
--- NOTE | 2019-05-01 18:18 | Internal Medicine Prog Note ---
Internal Medicine Subjective - Subjective Service Date: 05/01/19 Patient is:: awake, verbal, agitated, confused Patient Complaints of:: other (Hx of Schizophrenia.) Per staff patient has:: no adverse event, no episodes of fall Internal Medicine Objective - Physical Exam Vitals and I&O: Vital Signs Temp 97.6 F 05/01/19 14:00 Pulse 75 05/01/19 14:00 Resp 20 05/01/19 14:00 BP 102/54 05/01/19 14:00 Pulse Ox 96 05/01/19 14:00 Intake & Output 04/30/19 05/01/19 05/01/19 18:59 06:59 18:59 Intake Total 120 900 Balance 120 900 Intake: Oral 120 900 Other: # Voids 3 3 # Bowel Movements 1 Active Medications: Current Medications Acetaminophen (Tylenol) 650 mg PO Q4HR PRN PRN Reason: Mild Pain (Scale 1-3) Stop: 06/18/19 07:03 Last Admin: 04/30/19 21:52 Dose: 650 mg Acetaminophen (Tylenol) 650 mg PO Q4H PRN PRN Reason: TEMP ABOVE 100 Stop: 06/27/19 14:53 Al Hydrox/Mg Hydrox/Simethicone (Maalox) 30 ml PO Q4HR PRN PRN Reason: GI DISTRESS Stop: 06/18/19 07:03 Benztropine Mesylate (Cogentin) 1 mg PO DAILY [facility] Stop: 06/22/19 08:59 Last Admin: 05/01/19 08:09 Dose: 1 mg Hydroxyzine Pamoate (Vistaril) 25 mg PO BID [facility]; Protocol Stop: 06/19/19 08:59 Last Admin: 05/01/19 16:46 Dose: 25 mg Lorazepam (Ativan) 0.5 mg PO Q4HR PRN; Protocol PRN Reason: Agitation Stop: 06/25/19 22:25 Last Admin: 05/01/19 16:46 Dose: 0.5 mg Magnesium Hydroxide (Milk Of Magnesia) 30 ml PO HS PRN PRN Reason: Constipation Quetiapine Fumarate (Seroquel) 100 mg PO BID [facility] Stop: 06/23/19 10:29 Last Admin: 05/01/19 16:46 Dose: 100 mg Quetiapine Fumarate (Seroquel) 200 mg PO HS [facility] Stop: 06/29/19 20:59 Last Admin: 04/30/19 20:40 Dose: 200 mg Simvastatin (Zocor) 20 mg PO HS [facility]; Protocol Stop: 06/18/19 20:59 Last Admin: 04/30/19 20:40 Dose: 20 mg Zolpidem Tartrate (Ambien) 5 mg PO HS PRN PRN Reason: Insomnia Stop: 06/25/19 22:59 Last Admin: 04/30/19 20:41 Dose: 5 mg General: demented, NAD HEENT: NC/AT Neck: Supple, No JVD Lungs: CTAB Cardiovascular: RRR Abdomen: soft, non-tender, hepatomegaly Extremities: clear Neurological: no change, disorganized Internal Medicine Assmt/Plan - Assessment Assessment: schizophrenia hx encephalopathy - Plan Plan: fall precautions continue home meds monitor patient daily Nutritional Asmnt/Malnutr-PDOC - Dietary Evaluation Malnutrition Findings (Please click <Entered> for more info): Nutritional Asmnt/Malnutrition Start: 04/23/19 16: 32 Text: Status: Active Freq: Protocol: Document 04/23/19 16:32 MACK (Rec: 04/23/19 16:36 [email or web address]) Nutritional Asmnt/Malnutrition Patient General Information Nutritional Screening Low Risk Diagnosis Psychosis Pertinent Medical Hx/Surgical Hx Schizophrenia, Encephalopathy Subjective Information Pt is a 58-year-old female admitted on 04/19. Pt is eating an estimated 70% of meals Per Meal/Nutrition Activity Record. Dietary is currently providing an estimated 2600 kcals and 110 gm Pro, per Pt PO intake this is providing an estimated 1820 kcals and 77gm Pro to meet 100+% kcal and 100+% Pro needs . Anthropometrics HT: 5 FT WT: 106 LB (48.18 kg) BMI: 20.72 (normal) GI/ Skin Integrity GI: WNL, no symptoms BM: 04/22 x1 I/O: 1320/Not Noted Skin: WNL Charlie: 20 Diet Order: Mechanical Soft Estimated Energy Needs: ( Geriatric, CBW) 8495-5371 kcals (25-30 kcals/ kg) 50-60g Pro (1.0-1.2 g/kg) 2411-3785 ml (25-30 ml/kg) Current Diet Order/ Nutrition Support Mechanical Soft Pertinent Medications Maalox (PRN), MOM (PRN) Pertinent Labs Lipid Panel and A1c Pending, ordered 04/19/2019 Nutritional Hx/Data Height 5 ft Height (Calculated Centimeters) 152.4 Current Weight (lbs) 106 lb Weight (Calculated Kilograms) 48.1 Weight (Calculated Grams) 78754.8 [place] Body Weight 100 LB (45.45 kg) % [place] Body Weight 106 Body Mass Index (BMI) 20.7 Weight Status Approriate GI Symptoms GI Symptoms None Last BM 04/22 x1 Skin Integrity/Comment: Skin: WNL Charlie: 20 Current %PO Fair (50-74%) Estimated Nutritional Goals BEE in Kcals: Using Current wt Calories/Kcals/Kg 25-30 Kcals Calculated 5467-2935 Protein: Using Current wt Protein g/k.0-1.2 Protein Calculated 50-60 Fluid: ml 6353-0162 ml (25-30 ml/kg) Nutritional Problem No current Nutrition Prob Problem No nutrition diagnosis at this time. Etiology N/A Signs/Symptoms: N/A Malnutrition Related to Morbid Obesity Malnutrition related to morbid obesity No Intervention/Recommendation Comments Continue Mechanical Soft diet as tolerated. Expected Outcomes/Goals Expected Outcomes/Goals 8.PO intake to continue to meet >75% of estimated nutritional needs. 9.Monitor PO intake, wt, nutrition related labs, and skin integrity. 10.F/U as low risk in 7-10 days, 04/30-05/03
[2019-05-02] MEDS: Benztropine 1 MG TAB PO SCH (08:37)
--- NOTE | 2019-05-02 16:28 | Internal Medicine Prog Note ---
Internal Medicine Subjective - Subjective Service Date: 05/02/19 Patient seen and examined:: with staff Patient is:: awake, verbal, agitated, confused Patient Complaints of:: other (Hx of Schizophrenia.) Per staff patient has:: no adverse event, no episodes of fall Internal Medicine Objective - Physical Exam Vitals and I&O: Vital Signs Temp 99.8 F 05/02/19 14:00 Pulse 79 05/02/19 14:00 Resp 20 05/02/19 14:00 BP 102/60 05/02/19 14:00 Pulse Ox 97 05/02/19 14:00 Intake & Output 05/01/19 05/02/19 05/02/19 18:59 06:59 18:59 Intake Total 900 120 Balance 900 120 Intake: Oral 900 120 Other: # Voids 3 3 # Bowel Movements 1 Active Medications: Current Medications Acetaminophen (Tylenol) 650 mg PO Q4HR PRN PRN Reason: Mild Pain (Scale 1-3) Stop: 06/18/19 07:03 Last Admin: 04/30/19 21:52 Dose: 650 mg Acetaminophen (Tylenol) 650 mg PO Q4H PRN PRN Reason: TEMP ABOVE 100 Stop: 06/27/19 14:53 Al Hydrox/Mg Hydrox/Simethicone (Maalox) 30 ml PO Q4HR PRN PRN Reason: GI DISTRESS Stop: 06/18/19 07:03 Benztropine Mesylate (Cogentin) 1 mg PO DAILY [facility] Stop: 06/22/19 08:59 Last Admin: 05/02/19 08:37 Dose: 1 mg Hydroxyzine Pamoate (Vistaril) 25 mg PO BID [facility]; Protocol Stop: 06/19/19 08:59 Last Admin: 05/02/19 08:36 Dose: 25 mg Lorazepam (Ativan) 0.5 mg PO Q4HR PRN; Protocol PRN Reason: Agitation Stop: 06/25/19 22:25 Last Admin: 05/02/19 08:44 Dose: 0.5 mg Magnesium Hydroxide (Milk Of Magnesia) 30 ml PO HS PRN PRN Reason: Constipation Quetiapine Fumarate (Seroquel) 100 mg PO BID [facility] Stop: 06/23/19 10:29 Last Admin: 05/02/19 08:36 Dose: 100 mg Quetiapine Fumarate (Seroquel) 200 mg PO HS [facility] Stop: 06/29/19 20:59 Last Admin: 05/01/19 21:53 Dose: 200 mg Simvastatin (Zocor) 20 mg PO HS [facility]; Protocol Stop: 06/18/19 20:59 Last Admin: 05/01/19 21:53 Dose: 20 mg Zolpidem Tartrate (Ambien) 5 mg PO HS PRN PRN Reason: Insomnia Stop: 06/25/19 22:59 Last Admin: 05/01/19 21:54 Dose: 5 mg Physical Exam: Patient is still very confused, continues to need monitoring. General: demented, NAD HEENT: NC/AT Neck: Supple, No JVD Lungs: CTAB Cardiovascular: RRR Abdomen: soft, non-tender, hepatomegaly Extremities: clear Neurological: no change, disorganized Internal Medicine Assmt/Plan - Assessment Assessment: Schizophrenia. Encephalopathy. Manic behavior/Agitated. Hx of Psychosis. - Plan Plan: Continuation of care. Monitor vitals and labs. Monitor diet and nutritional support. Continue present meds as directed. Supportive care. Psych management per Psyche. Continue current treatment plan as ordered. Nutritional Asmnt/Malnutr-PDOC - Dietary Evaluation Malnutrition Findings (Please click <Entered> for more info): Nutritional Asmnt/Malnutrition Start: 04/23/19 16: 32 Text: Status: Complete Freq: Protocol: Document 04/23/19 16:32 MACK (Rec: 04/23/19 16:36 [email or web address]) Nutritional Asmnt/Malnutrition Patient General Information Nutritional Screening Low Risk Diagnosis Psychosis Pertinent Medical Hx/Surgical Hx Schizophrenia, Encephalopathy Subjective Information Pt is a 58-year-old female admitted on 04/19. Pt is eating an estimated 70% of meals Per Meal/Nutrition Activity Record. Dietary is currently providing an estimated 2600 kcals and 110 gm Pro, per Pt PO intake this is providing an estimated 1820 kcals and 77gm Pro to meet 100+% kcal and 100+% Pro needs . Anthropometrics HT: 5 FT WT: 106 LB (48.18 kg) BMI: 20.72 (normal) GI/ Skin Integrity GI: WNL, no symptoms BM: 04/22 x1 I/O: 1320/Not Noted Skin: WNL Charlie: 20 Diet Order: Mechanical Soft Estimated Energy Needs: ( Geriatric, CBW) 3879-1534 kcals (25-30 kcals/ kg) 50-60g Pro (1.0-1.2 g/kg) 7379-0683 ml (25-30 ml/kg) Current Diet Order/ Nutrition Support Mechanical Soft Pertinent Medications Maalox (PRN), MOM (PRN) Pertinent Labs Lipid Panel and A1c Pending, ordered 04/19/2019 Nutritional Hx/Data Height 1.52 m Height (Calculated Centimeters) 152.4 Current Weight (lbs) 48.081 kg Weight (Calculated Kilograms) 48.1 Weight (Calculated Grams) 70299.8 [place] Body Weight 100 LB (45.45 kg) % [place] Body Weight 106 Body Mass Index (BMI) 20.7 Weight Status Approriate GI Symptoms GI Symptoms None Last BM 04/22 x1 Skin Integrity/Comment: Skin: WNL Charlie: 20 Current %PO Fair (50-74%) Estimated Nutritional Goals BEE in Kcals: Using Current wt Calories/Kcals/Kg 25-30 Kcals Calculated 9525-3853 Protein: Using Current wt Protein g/k.0-1.2 Protein Calculated 50-60 Fluid: ml 0336-3193 ml (25-30 ml/kg) Nutritional Problem No current Nutrition Prob Problem No nutrition diagnosis at this time. Etiology N/A Signs/Symptoms: N/A Malnutrition Related to Morbid Obesity Malnutrition related to morbid obesity No Intervention/Recommendation Comments Continue Mechanical Soft diet as tolerated. Expected Outcomes/Goals Expected Outcomes/Goals 8.PO intake to continue to meet >75% of estimated nutritional needs. 9.Monitor PO intake, wt, nutrition related labs, and skin integrity. 10.F/U as low risk in 7-10 days, 04/30-05/03
[2019-05-03] MEDS: Benztropine 1 MG TAB PO SCH (09:00)
--- NOTE | 2019-05-03 11:44 | Internal Medicine Prog Note ---
Internal Medicine Subjective - Subjective Service Date: 05/03/19 Patient seen and examined:: with staff, chart reviewed Patient is:: awake, verbal, agitated, confused Patient Complaints of:: other (Hx of Schizophrenia.) Per staff patient has:: no adverse event, no episodes of fall Internal Medicine Objective - Physical Exam Vitals and I&O: Vital Signs Temp 97.8 F 05/03/19 06:20 Pulse 81 05/03/19 06:20 Resp 18 05/03/19 06:20 BP 94/57 05/03/19 06:20 Pulse Ox 96 05/03/19 06:20 Intake & Output 05/02/19 05/03/19 05/03/19 18:59 06:59 18:59 Intake Total 900 480 Balance 900 480 Intake: Oral 900 480 Other: # Voids 3 1 # Bowel Movements 1 Active Medications: Current Medications Acetaminophen (Tylenol) 650 mg PO Q4HR PRN PRN Reason: Mild Pain (Scale 1-3) Stop: 06/18/19 07:03 Last Admin: 04/30/19 21:52 Dose: 650 mg Acetaminophen (Tylenol) 650 mg PO Q4H PRN PRN Reason: TEMP ABOVE 100 Stop: 06/27/19 14:53 Al Hydrox/Mg Hydrox/Simethicone (Maalox) 30 ml PO Q4HR PRN PRN Reason: GI DISTRESS Stop: 06/18/19 07:03 Benztropine Mesylate (Cogentin) 1 mg PO DAILY [facility] Stop: 06/22/19 08:59 Last Admin: 05/02/19 08:37 Dose: 1 mg Hydroxyzine Pamoate (Vistaril) 25 mg PO BID [facility]; Protocol Stop: 06/19/19 08:59 Last Admin: 05/02/19 17:23 Dose: 25 mg Lorazepam (Ativan) 0.5 mg PO Q4HR PRN; Protocol PRN Reason: Agitation Stop: 06/25/19 22:25 Last Admin: 05/02/19 08:44 Dose: 0.5 mg Magnesium Hydroxide (Milk Of Magnesia) 30 ml PO HS PRN PRN Reason: Constipation Quetiapine Fumarate (Seroquel) 100 mg PO BID [facility] Stop: 06/23/19 10:29 Last Admin: 05/02/19 17:23 Dose: 100 mg Quetiapine Fumarate (Seroquel) 200 mg PO HS [facility] Stop: 06/29/19 20:59 Last Admin: 05/02/19 20:45 Dose: 200 mg Simvastatin (Zocor) 20 mg PO HS [facility]; Protocol Stop: 06/18/19 20:59 Last Admin: 05/02/19 20:45 Dose: 20 mg Zolpidem Tartrate (Ambien) 5 mg PO HS PRN PRN Reason: Insomnia Stop: 06/25/19 22:59 Last Admin: 05/01/19 21:54 Dose: 5 mg Physical Exam: Patient continues to need monitoring, easily frustrated and irritable. General: demented, NAD HEENT: NC/AT Neck: Supple, No JVD Lungs: CTAB Cardiovascular: RRR Abdomen: soft, non-tender, hepatomegaly Extremities: clear Neurological: no change, disorganized Internal Medicine Assmt/Plan - Assessment Assessment: Schizophrenia. Encephalopathy. Manic behavior/Agitated. Hx of Psychosis. - Plan Plan: Continuation of care. Monitor vitals and labs. Monitor diet and nutritional support. Continue present meds as directed. Supportive care. Psych management per Psyche. Continue current treatment plan as ordered. Nutritional Asmnt/Malnutr-PDOC - Dietary Evaluation Malnutrition Findings (Please click <Entered> for more info): Nutritional Asmnt/Malnutrition Start: 04/23/19 16: 32 Text: Status: Complete Freq: Protocol: Document 04/23/19 16:32 MACK (Rec: 04/23/19 16:36 [email or web address]) Nutritional Asmnt/Malnutrition Patient General Information Nutritional Screening Low Risk Diagnosis Psychosis Pertinent Medical Hx/Surgical Hx Schizophrenia, Encephalopathy Subjective Information Pt is a 58-year-old female admitted on 04/19. Pt is eating an estimated 70% of meals Per Meal/Nutrition Activity Record. Dietary is currently providing an estimated 2600 kcals and 110 gm Pro, per Pt PO intake this is providing an estimated 1820 kcals and 77gm Pro to meet 100+% kcal and 100+% Pro needs . Anthropometrics HT: 5 FT WT: 106 LB (48.18 kg) BMI: 20.72 (normal) GI/ Skin Integrity GI: WNL, no symptoms BM: 04/22 x1 I/O: 1320/Not Noted Skin: WNL Charlie: 20 Diet Order: Mechanical Soft Estimated Energy Needs: ( Geriatric, CBW) 6918-2447 kcals (25-30 kcals/ kg) 50-60g Pro (1.0-1.2 g/kg) 0299-4857 ml (25-30 ml/kg) Current Diet Order/ Nutrition Support Mechanical Soft Pertinent Medications Maalox (PRN), MOM (PRN) Pertinent Labs Lipid Panel and A1c Pending, ordered 04/19/2019 Nutritional Hx/Data Height 1.52 m Height (Calculated Centimeters) 152.4 Current Weight (lbs) 48.081 kg Weight (Calculated Kilograms) 48.1 Weight (Calculated Grams) 78451.8 [place] Body Weight 100 LB (45.45 kg) % [place] Body Weight 106 Body Mass Index (BMI) 20.7 Weight Status Approriate GI Symptoms GI Symptoms None Last BM 04/22 x1 Skin Integrity/Comment: Skin: WNL Charlie: 20 Current %PO Fair (50-74%) Estimated Nutritional Goals BEE in Kcals: Using Current wt Calories/Kcals/Kg 25-30 Kcals Calculated 8192-1309 Protein: Using Current wt Protein g/k.0-1.2 Protein Calculated 50-60 Fluid: ml 1513-3792 ml (25-30 ml/kg) Nutritional Problem No current Nutrition Prob Problem No nutrition diagnosis at this time. Etiology N/A Signs/Symptoms: N/A Malnutrition Related to Morbid Obesity Malnutrition related to morbid obesity No Intervention/Recommendation Comments Continue Mechanical Soft diet as tolerated. Expected Outcomes/Goals Expected Outcomes/Goals 8.PO intake to continue to meet >75% of estimated nutritional needs. 9.Monitor PO intake, wt, nutrition related labs, and skin integrity. 10.F/U as low risk in 7-10 days, 04/30-05/03
[2019-05-04] MEDS: Benztropine 1 MG TAB PO SCH (09:04)
--- NOTE | 2019-05-04 11:29 | Internal Medicine Prog Note ---
Internal Medicine Subjective - Subjective Patient is:: awake, verbal, confused Patient Complaints of:: other (Hx of Schizophrenia.) Per staff patient has:: no adverse event, no episodes of fall Internal Medicine Objective - Physical Exam Vitals and I&O: Vital Signs Temp 98.0 F 05/04/19 06:18 Pulse 85 05/04/19 06:18 Resp 20 05/04/19 06:18 BP 93/55 05/04/19 06:18 Pulse Ox 95 05/04/19 06:18 Intake & Output 05/03/19 05/04/19 05/04/19 18:59 06:59 18:59 Intake Total 850 240 Balance 850 240 Intake: Oral 850 240 Other: # Voids 4 2 # Bowel Movements 1 Active Medications: Current Medications Acetaminophen (Tylenol) 650 mg PO Q4HR PRN PRN Reason: Mild Pain (Scale 1-3) Stop: 06/18/19 07:03 Last Admin: 04/30/19 21:52 Dose: 650 mg Acetaminophen (Tylenol) 650 mg PO Q4H PRN PRN Reason: TEMP ABOVE 100 Stop: 06/27/19 14:53 Al Hydrox/Mg Hydrox/Simethicone (Maalox) 30 ml PO Q4HR PRN PRN Reason: GI DISTRESS Stop: 06/18/19 07:03 Benztropine Mesylate (Cogentin) 1 mg PO DAILY [facility] Stop: 06/22/19 08:59 Last Admin: 05/04/19 09:04 Dose: 1 mg Hydroxyzine Pamoate (Vistaril) 25 mg PO BID [facility]; Protocol Stop: 06/19/19 08:59 Last Admin: 05/04/19 09:04 Dose: 25 mg Lorazepam (Ativan) 0.5 mg PO Q4HR PRN; Protocol PRN Reason: Agitation Stop: 06/25/19 22:25 Last Admin: 05/02/19 08:44 Dose: 0.5 mg Magnesium Hydroxide (Milk Of Magnesia) 30 ml PO HS PRN PRN Reason: Constipation Quetiapine Fumarate (Seroquel) 100 mg PO BID [facility] Stop: 06/23/19 10:29 Last Admin: 05/04/19 09:04 Dose: 100 mg Quetiapine Fumarate (Seroquel) 200 mg PO HS [facility] Stop: 01/19/20 20:59 Last Admin: 05/03/19 21:48 Dose: 200 mg Simvastatin (Zocor) 20 mg PO HS [facility]; Protocol Stop: 06/18/19 20:59 Last Admin: 05/03/19 21:48 Dose: 20 mg Zolpidem Tartrate (Ambien) 5 mg PO HS PRN PRN Reason: Insomnia Stop: 06/25/19 22:59 Last Admin: 05/03/19 21:48 Dose: 5 mg General: demented, NAD HEENT: NC/AT Neck: Supple, No JVD Lungs: CTAB, other (no acute respiratory distress) Cardiovascular: RRR Abdomen: soft, non-tender Extremities: clear Neurological: no change, disorganized Internal Medicine Assmt/Plan - Assessment Assessment: Schizophrenia Encephalopathy Manic behavior Agitation Hx Psychosis - Plan Plan: Continue current treatment plan. Monitor Labs. Continue current medications Continue to monitor VS Monitor Diet/Nutritional support. Psych management per Psychiatry. Pain Management. PT/OT prnSafety precaution, Fall precaution, frequent nursing round. Supportive care. Continue collaborating with consulting specialists, case management and nursing team Nutritional Asmnt/Malnutr-PDOC - Dietary Evaluation Malnutrition Findings (Please click <Entered> for more info): Nutritional Asmnt/Malnutrition Start: 04/23/19 16: 32 Text: Status: Complete Freq: Protocol: Document 04/23/19 16:32 MACK (Rec: 04/23/19 16:36 [email or web address]) Nutritional Asmnt/Malnutrition Patient General Information Nutritional Screening Low Risk Diagnosis Psychosis Pertinent Medical Hx/Surgical Hx Schizophrenia, Encephalopathy Subjective Information Pt is a 58-year-old female admitted on 04/19. Pt is eating an estimated 70% of meals Per Meal/Nutrition Activity Record. Dietary is currently providing an estimated 2600 kcals and 110 gm Pro, per Pt PO intake this is providing an estimated 1820 kcals and 77gm Pro to meet 100+% kcal and 100+% Pro needs . Anthropometrics HT: 5 FT WT: 106 LB (48.18 kg) BMI: 20.72 (normal) GI/ Skin Integrity GI: WNL, no symptoms BM: 04/22 x1 I/O: 1320/Not Noted Skin: WNL Charlie: 20 Diet Order: Mechanical Soft Estimated Energy Needs: ( Geriatric, CBW) 6863-2449 kcals (25-30 kcals/ kg) 50-60g Pro (1.0-1.2 g/kg) 0460-2675 ml (25-30 ml/kg) Current Diet Order/ Nutrition Support Mechanical Soft Pertinent Medications Maalox (PRN), MOM (PRN) Pertinent Labs Lipid Panel and A1c Pending, ordered 04/19/2019 Nutritional Hx/Data Height 5 ft Height (Calculated Centimeters) 152.4 Current Weight (lbs) 106 lb Weight (Calculated Kilograms) 48.1 Weight (Calculated Grams) 97469.8 [place] Body Weight 100 LB (45.45 kg) % [place] Body Weight 106 Body Mass Index (BMI) 20.7 Weight Status Approriate GI Symptoms GI Symptoms None Last BM 04/22 x1 Skin Integrity/Comment: Skin: WNL Charlie: 20 Current %PO Fair (50-74%) Estimated Nutritional Goals BEE in Kcals: Using Current wt Calories/Kcals/Kg 25-30 Kcals Calculated 6464-8731 Protein: Using Current wt Protein g/k.0-1.2 Protein Calculated 50-60 Fluid: ml 8475-0162 ml (25-30 ml/kg) Nutritional Problem No current Nutrition Prob Problem No nutrition diagnosis at this time. Etiology N/A Signs/Symptoms: N/A Malnutrition Related to Morbid Obesity Malnutrition related to morbid obesity No Intervention/Recommendation Comments Continue Mechanical Soft diet as tolerated. Expected Outcomes/Goals Expected Outcomes/Goals 8.PO intake to continue to meet >75% of estimated nutritional needs. 9.Monitor PO intake, wt, nutrition related labs, and skin integrity. 10.F/U as low risk in 7-10 days, 04/30-05/03
--- NOTE | 2019-05-04 17:02 | Progress Notes ---
DATE: 05/02/2019 SUBJECTIVE: Chart was reviewed and the patient interviewed. Also discussed the patient's condition with the staff and reviewed records and labs. The patient is still easily agitated. The patient is still restless. The patient also is still intrusive to others and she is still forgetful and focused in food and smoking cigarettes. She also still easily irritable and agitated and needs close monitoring. Slightly easier to redirect her. ASSESSMENT: The patient is still agitated and psychotic and exhibiting manic behavior. TREATMENT PLAN: Continue to monitor behavior and condition closely. Also, continue working on her irritability and manic behavior and being intrusive to others. Also, continue adjusting psychotropic medications and follow up closely. [facility]# [id number]
--- NOTE | 2019-05-04 17:57 | Internal Medicine Prog Note ---
Internal Medicine Subjective - Subjective Service Date: 05/04/19 Patient is:: awake, verbal, agitated, confused Patient Complaints of:: other (Hx of Schizophrenia.) Per staff patient has:: no adverse event, no episodes of fall Internal Medicine Objective - Physical Exam Vitals and I&O: Vital Signs Temp 98.0 F 05/04/19 06:18 Pulse 85 05/04/19 06:18 Resp 20 05/04/19 06:18 BP 93/55 05/04/19 06:18 Pulse Ox 95 05/04/19 06:18 Intake & Output 05/03/19 05/04/19 05/04/19 18:59 06:59 18:59 Intake Total 850 240 Balance 850 240 Intake: Oral 850 240 Other: # Voids 4 2 # Bowel Movements 1 Active Medications: Current Medications Acetaminophen (Tylenol) 650 mg PO Q4HR PRN PRN Reason: Mild Pain (Scale 1-3) Stop: 06/18/19 07:03 Last Admin: 04/30/19 21:52 Dose: 650 mg Acetaminophen (Tylenol) 650 mg PO Q4H PRN PRN Reason: TEMP ABOVE 100 Stop: 06/27/19 14:53 Al Hydrox/Mg Hydrox/Simethicone (Maalox) 30 ml PO Q4HR PRN PRN Reason: GI DISTRESS Stop: 06/18/19 07:03 Benztropine Mesylate (Cogentin) 1 mg PO DAILY [facility] Stop: 06/22/19 08:59 Last Admin: 05/04/19 09:04 Dose: 1 mg Hydroxyzine Pamoate (Vistaril) 25 mg PO BID [facility]; Protocol Stop: 06/19/19 08:59 Last Admin: 05/04/19 16:50 Dose: 25 mg Lorazepam (Ativan) 0.5 mg PO Q4HR PRN; Protocol PRN Reason: Agitation Stop: 06/25/19 22:25 Last Admin: 05/02/19 08:44 Dose: 0.5 mg Magnesium Hydroxide (Milk Of Magnesia) 30 ml PO HS PRN PRN Reason: Constipation Quetiapine Fumarate (Seroquel) 100 mg PO BID [facility] Stop: 06/23/19 10:29 Last Admin: 05/04/19 16:50 Dose: Not Given Quetiapine Fumarate (Seroquel) 200 mg PO HS [facility] Stop: 06/29/19 20:59 Last Admin: 05/03/19 21:48 Dose: 200 mg Simvastatin (Zocor) 20 mg PO HS [facility]; Protocol Stop: 06/18/19 20:59 Last Admin: 05/03/19 21:48 Dose: 20 mg Zolpidem Tartrate (Ambien) 5 mg PO HS PRN PRN Reason: Insomnia Stop: 06/25/19 22:59 Last Admin: 05/03/19 21:48 Dose: 5 mg Physical Exam: Patient continues to need monitoring, still very hostile and intrusive with others. General: demented, NAD HEENT: NC/AT Neck: Supple, No JVD Lungs: CTAB, other (no acute respiratory distress) Cardiovascular: RRR Abdomen: soft, non-tender Extremities: clear Neurological: no change, disorganized Internal Medicine Assmt/Plan - Assessment Assessment: Schizophrenia. Encephalopathy. Manic behavior/Agitated. Hx of Psychosis. - Plan Plan: Continuation of care. Monitor vitals and labs. Monitor diet and nutritional support. Continue present meds as directed. Supportive care. Psych management per Psyche. Continue current treatment plan as ordered. Nutritional Asmnt/Malnutr-PDOC - Dietary Evaluation Malnutrition Findings (Please click <Entered> for more info): Nutritional Asmnt/Malnutrition Start: 04/23/19 16: 32 Text: Status: Complete Freq: Protocol: Document 04/23/19 16:32 MACK (Rec: 04/23/19 16:36 [email or web address]) Nutritional Asmnt/Malnutrition Patient General Information Nutritional Screening Low Risk Diagnosis Psychosis Pertinent Medical Hx/Surgical Hx Schizophrenia, Encephalopathy Subjective Information Pt is a 58-year-old female admitted on 04/19. Pt is eating an estimated 70% of meals Per Meal/Nutrition Activity Record. Dietary is currently providing an estimated 2600 kcals and 110 gm Pro, per Pt PO intake this is providing an estimated 1820 kcals and 77gm Pro to meet 100+% kcal and 100+% Pro needs . Anthropometrics HT: 5 FT WT: 106 LB (48.18 kg) BMI: 20.72 (normal) GI/ Skin Integrity GI: WNL, no symptoms BM: 04/22 x1 I/O: 1320/Not Noted Skin: WNL Charlie: 20 Diet Order: Mechanical Soft Estimated Energy Needs: ( Geriatric, CBW) 1543-5629 kcals (25-30 kcals/ kg) 50-60g Pro (1.0-1.2 g/kg) 6152-0494 ml (25-30 ml/kg) Current Diet Order/ Nutrition Support Mechanical Soft Pertinent Medications Maalox (PRN), MOM (PRN) Pertinent Labs Lipid Panel and A1c Pending, ordered 04/19/2019 Nutritional Hx/Data Height 1.52 m Height (Calculated Centimeters) 152.4 Current Weight (lbs) 48.081 kg Weight (Calculated Kilograms) 48.1 Weight (Calculated Grams) 36419.8 [place] Body Weight 100 LB (45.45 kg) % [place] Body Weight 106 Body Mass Index (BMI) 20.7 Weight Status Approriate GI Symptoms GI Symptoms None Last BM 04/22 x1 Skin Integrity/Comment: Skin: WNL Charlie: 20 Current %PO Fair (50-74%) Estimated Nutritional Goals BEE in Kcals: Using Current wt Calories/Kcals/Kg 25-30 Kcals Calculated 3402-0655 Protein: Using Current wt Protein g/k.0-1.2 Protein Calculated 50-60 Fluid: ml 9817-1198 ml (25-30 ml/kg) Nutritional Problem No current Nutrition Prob Problem No nutrition diagnosis at this time. Etiology N/A Signs/Symptoms: N/A Malnutrition Related to Morbid Obesity Malnutrition related to morbid obesity No Intervention/Recommendation Comments Continue Mechanical Soft diet as tolerated. Expected Outcomes/Goals Expected Outcomes/Goals 8.PO intake to continue to meet >75% of estimated nutritional needs. 9.Monitor PO intake, wt, nutrition related labs, and skin integrity. 10.F/U as low risk in 7-10 days, 04/30-05/03
--- NOTE | 2019-05-05 02:31 | Psych Progress Note ---
Psych Progress Note - Intro Date of Progress Note: 05/03/19 - Assessment Assessment: Patient interviewed, case discussed with staff, chart and records were reviewed. Patient is restless and anxious. She apparently has been intrusive with manic behaviors per staff reports. Serqouel recently increased no side effects noted. She is rambling and not making sense. Redirectable/ interputable in conversation but not answering questions appropriately. Not willing to complete symptom screening. - Vitals, I&O Vitals: Vital Signs - 24 hr 05/04/19 05/04/19 05/04/19 06:18 17:52 20:34 Temp 98.0 F 98.5 F 98.6 F HR 85 66 86 RR 20 20 19 BP 93/55 86/44 125/70 O2 Sat % 95 99 95 - Objective Psych Objective: in wheelchair, restless/anxious, rambling speech, labile, loose thought process , ELI SI/HI/AH/VH due to poor cooperation, A&O x 1, insight is poor - Plan Plan: cont med titration. - Review of Relevant Data Review of Relevant Data: I have reviewed the following items and time cain (where applicable) has been applied. - Medications Current Medications: Current Medications Acetaminophen (Tylenol) 650 mg PO Q4HR PRN PRN Reason: Mild Pain (Scale 1-3) Stop: 06/18/19 07:03 Last Admin: 04/30/19 21:52 Dose: 650 mg Acetaminophen (Tylenol) 650 mg PO Q4H PRN PRN Reason: TEMP ABOVE 100 Stop: 06/27/19 14:53 Al Hydrox/Mg Hydrox/Simethicone (Maalox) 30 ml PO Q4HR PRN PRN Reason: GI DISTRESS Stop: 06/18/19 07:03 Benztropine Mesylate (Cogentin) 1 mg PO DAILY [facility] Stop: 06/22/19 08:59 Last Admin: 05/04/19 09:04 Dose: 1 mg Hydroxyzine Pamoate (Vistaril) 25 mg PO BID [facility]; Protocol Stop: 06/19/19 08:59 Last Admin: 05/04/19 16:50 Dose: 25 mg Lorazepam (Ativan) 0.5 mg PO Q4HR PRN; Protocol PRN Reason: Agitation Stop: 06/25/19 22:25 Last Admin: 05/02/19 08:44 Dose: 0.5 mg Magnesium Hydroxide (Milk Of Magnesia) 30 ml PO HS PRN PRN Reason: Constipation Quetiapine Fumarate (Seroquel) 100 mg PO BID [facility] Stop: 06/23/19 10:29 Last Admin: 05/04/19 16:50 Dose: Not Given Quetiapine Fumarate (Seroquel) 200 mg PO HS [facility] Stop: 06/29/19 20:59 Last Admin: 05/04/19 20:35 Dose: 200 mg Simvastatin (Zocor) 20 mg PO HS [facility]; Protocol Stop: 06/18/19 20:59 Last Admin: 05/04/19 20:35 Dose: 20 mg Zolpidem Tartrate (Ambien) 5 mg PO HS PRN PRN Reason: Insomnia Stop: 06/25/19 22:59 Last Admin: 05/04/19 20:35 Dose: 5 mg
--- NOTE | 2019-05-05 02:32 | Psych Progress Note ---
Psych Progress Note - Intro Date of Progress Note: 05/04/19 - Assessment Assessment: Patient interviewed, case discussed with staff, chart and records were reviewed. Patient is smiling and moving around in her wheelchair restless. She is rambling, intrusive needs redirection. She attempts to cooperate with interview but is rambling about unknown topics. No med side effects noted. - Vitals, I&O Vitals: Vital Signs - 24 hr 05/04/19 05/04/19 05/04/19 06:18 17:52 20:34 Temp 98.0 F 98.5 F 98.6 F HR 85 66 86 RR 19 BP 93/55 86/44 125/70 O2 Sat % 95 99 95 - Objective Psych Objective: in wheelchair, restless/anxious, rambling speech, labile, loose thought process , ELI SI/HI/AH/VH due to poor cooperation, A&O x 1, insight is poor - Plan Plan: cont med titration. - Review of Relevant Data Review of Relevant Data: I have reviewed the following items and time cain (where applicable) has been applied. - Medications Current Medications: Current Medications Acetaminophen (Tylenol) 650 mg PO Q4HR PRN PRN Reason: Mild Pain (Scale 1-3) Stop: 06/18/19 07:03 Last Admin: 04/30/19 21:52 Dose: 650 mg Acetaminophen (Tylenol) 650 mg PO Q4H PRN PRN Reason: TEMP ABOVE 100 Stop: 06/27/19 14:53 Al Hydrox/Mg Hydrox/Simethicone (Maalox) 30 ml PO Q4HR PRN PRN Reason: GI DISTRESS Stop: 06/18/19 07:03 Benztropine Mesylate (Cogentin) 1 mg PO DAILY [facility] Stop: 06/22/19 08:59 Last Admin: 05/04/19 09:04 Dose: 1 mg Hydroxyzine Pamoate (Vistaril) 25 mg PO BID [facility]; Protocol Stop: 06/19/19 08:59 Last Admin: 05/04/19 16:50 Dose: 25 mg Lorazepam (Ativan) 0.5 mg PO Q4HR PRN; Protocol PRN Reason: Agitation Stop: 06/25/19 22:25 Last Admin: 05/02/19 08:44 Dose: 0.5 mg Magnesium Hydroxide (Milk Of Magnesia) 30 ml PO HS PRN PRN Reason: Constipation Quetiapine Fumarate (Seroquel) 100 mg PO BID [facility] Stop: 06/23/19 10:29 Last Admin: 05/04/19 16:50 Dose: Not Given Quetiapine Fumarate (Seroquel) 200 mg PO HS [facility] Stop: 06/29/19 20:59 Last Admin: 05/04/19 20:35 Dose: 200 mg Simvastatin (Zocor) 20 mg PO HS [facility]; Protocol Stop: 06/18/19 20:59 Last Admin: 05/04/19 20:35 Dose: 20 mg Zolpidem Tartrate (Ambien) 5 mg PO HS PRN PRN Reason: Insomnia Stop: 06/25/19 22:59 Last Admin: 05/04/19 20:35 Dose: 5 mg
[2019-05-05] MEDS: Benztropine 1 MG TAB PO SCH (08:23)
--- NOTE | 2019-05-05 13:21 | Internal Medicine Prog Note ---
Internal Medicine Subjective - Subjective Service Date: 05/05/19 Patient seen and examined:: with staff Patient is:: awake, verbal, agitated, confused Patient Complaints of:: other (Hx of Schizophrenia.) Per staff patient has:: no adverse event, no episodes of fall Internal Medicine Objective - Physical Exam Vitals and I&O: Vital Signs Temp 97.8 F 05/05/19 06:41 Pulse 87 05/05/19 06:41 Resp 19 05/05/19 06:41 BP 100/54 05/05/19 06:41 Pulse Ox 97 05/05/19 06:41 Intake & Output 05/04/19 05/05/19 05/05/19 18:59 06:59 18:59 Intake Total 950 480 Balance 950 480 Intake: Oral 950 480 Other: # Voids 4 1 # Bowel Movements 1 Active Medications: Current Medications Acetaminophen (Tylenol) 650 mg PO Q4HR PRN PRN Reason: Mild Pain (Scale 1-3) Stop: 06/18/19 07:03 Last Admin: 04/30/19 21:52 Dose: 650 mg Acetaminophen (Tylenol) 650 mg PO Q4H PRN PRN Reason: TEMP ABOVE 100 Stop: 06/27/19 14:53 Al Hydrox/Mg Hydrox/Simethicone (Maalox) 30 ml PO Q4HR PRN PRN Reason: GI DISTRESS Stop: 06/18/19 07:03 Benztropine Mesylate (Cogentin) 1 mg PO DAILY [facility] Stop: 06/22/19 08:59 Last Admin: 05/05/19 08:23 Dose: 1 mg Hydroxyzine Pamoate (Vistaril) 25 mg PO BID SRINIVASA; Protocol Stop: 06/19/19 08:59 Last Admin: 05/05/19 08:23 Dose: 25 mg Lorazepam (Ativan) 0.5 mg PO Q4HR PRN; Protocol PRN Reason: Agitation Stop: 06/25/19 22:25 Last Admin: 05/02/19 08:44 Dose: 0.5 mg Magnesium Hydroxide (Milk Of Magnesia) 30 ml PO HS PRN PRN Reason: Constipation Quetiapine Fumarate (Seroquel) 100 mg PO BID [facility] Stop: 06/23/19 10:29 Last Admin: 05/05/19 08:23 Dose: 100 mg Quetiapine Fumarate (Seroquel) 200 mg PO HS SRINIVASA Stop: 06/29/19 20:59 Last Admin: 05/04/19 20:35 Dose: 200 mg Simvastatin (Zocor) 20 mg PO HS SRINIVASA; Protocol Stop: 06/18/19 20:59 Last Admin: 05/04/19 20:35 Dose: 20 mg Zolpidem Tartrate (Ambien) 5 mg PO HS PRN PRN Reason: Insomnia Stop: 06/25/19 22:59 Last Admin: 05/04/19 20:35 Dose: 5 mg Physical Exam: Patient continues to need monitoring, is very confused, inconsequential, in wheelchair very anxious. General: demented, NAD HEENT: NC/AT Neck: Supple, No JVD Lungs: CTAB, other (no acute respiratory distress) Cardiovascular: RRR Abdomen: soft, non-tender Extremities: clear Neurological: no change, disorganized Internal Medicine Assmt/Plan - Assessment Assessment: Schizophrenia. Encephalopathy. Manic behavior/Agitated. Hx of Psychosis. - Plan Plan: Continuation of care. Monitor vitals and labs. Monitor diet and nutritional support. Continue present meds as directed. Supportive care. Psych management per Psyche. Continue current treatment plan as ordered. Nutritional Asmnt/Malnutr-PDOC - Dietary Evaluation Malnutrition Findings (Please click <Entered> for more info): Nutritional Asmnt/Malnutrition Start: 04/23/19 16: 32 Text: Status: Complete Freq: Protocol: Document 04/23/19 16:32 MACK (Rec: 04/23/19 16:36 [id number]) Nutritional Asmnt/Malnutrition Patient General Information Nutritional Screening Low Risk Diagnosis Psychosis Pertinent Medical Hx/Surgical Hx Schizophrenia, Encephalopathy Subjective Information Pt is a 58-year-old female admitted on 04/19. Pt is eating an estimated 70% of meals Per Meal/Nutrition Activity Record. Dietary is currently providing an estimated 2600 kcals and 110 gm Pro, per Pt PO intake this is providing an estimated 1820 kcals and 77gm Pro to meet 100+% kcal and 100+% Pro needs . Anthropometrics HT: 5 FT WT: 106 LB (48.18 kg) BMI: 20.72 (normal) GI/ Skin Integrity GI: WNL, no symptoms BM: 04/22 x1 I/O: 1320/Not Noted Skin: WNL Charlie: 20 Diet Order: Mechanical Soft Estimated Energy Needs: ( Geriatric, CBW) 8822-8467 kcals (25-30 kcals/ kg) 50-60g Pro (1.0-1.2 g/kg) 5716-6311 ml (25-30 ml/kg) Current Diet Order/ Nutrition Support Mechanical Soft Pertinent Medications Maalox (PRN), MOM (PRN) Pertinent Labs Lipid Panel and A1c Pending, ordered 04/19/2019 Nutritional Hx/Data Height 1.52 m Height (Calculated Centimeters) 152.4 Current Weight (lbs) 48.081 kg Weight (Calculated Kilograms) 48.1 Weight (Calculated Grams) 30924.8 [place] Body Weight 100 LB (45.45 kg) % [place] Body Weight 106 Body Mass Index (BMI) 20.7 Weight Status Approriate GI Symptoms GI Symptoms None Last BM 04/22 x1 Skin Integrity/Comment: Skin: WNArmando Guerra: 20 Current %PO Fair (50-74%) Estimated Nutritional Goals BEE in Kcals: Using Current wt Calories/Kcals/Kg 25-30 Kcals Calculated 8736-6668 Protein: Using Current wt Protein g/k.0-1.2 Protein Calculated 50-60 Fluid: ml 2998-1052 ml (25-30 ml/kg) Nutritional Problem No current Nutrition Prob Problem No nutrition diagnosis at this time. Etiology N/A Signs/Symptoms: N/A Malnutrition Related to Morbid Obesity Malnutrition related to morbid obesity No Intervention/Recommendation Comments Continue Mechanical Soft diet as tolerated. Expected Outcomes/Goals Expected Outcomes/Goals 8.PO intake to continue to meet >75% of estimated nutritional needs. 9.Monitor PO intake, wt, nutrition related labs, and skin integrity. 10.F/U as low risk in 7-10 days, 04/30-05/03
[2019-05-06] MEDS: Benztropine 1 MG TAB PO SCH (08:33)
--- NOTE | 2019-05-06 08:47 | Progress Notes ---
DATE: 05/05/2019 SUBJECTIVE: The patient is in the hospital, calm on exam, cooperative, would come in due to confusion, seems to be showing some signs of improvement. Staff noting she has been generally calmer and more cooperative. No overt agitation and no escalation of behaviors, rambling, intrusive, needs redirection. Dr. Chavez saw the patient on the weekend, likely approaching a baseline, currently on dosing of Seroquel. We will err on the side of caution, recommend on further 24 hours of monitoring. JOB# [id number]
--- NOTE | 2019-05-07 02:37 | Discharge Summary ---
DATE OF DISCHARGE: 05/06/2019 FINAL DIAGNOSIS AND PRIMARY DIAGNOSIS: Bipolar disorder, manic episode, severe, with psychotic features. REASON FOR HOSPITALIZATION: The patient was admitted to the hospital because of increased irritability and increased agitation with manic behavior and inability to follow directions and also trouble with sleeping at night and anger, under treatment with the staff. HOSPITAL COURSE: The patient continued to be in irritable and angry mood. The patient also is easily agitated and easily irritable. She also was not able to follow any of staff directions. She also is having trouble sleeping at night. The patient started on Seroquel and the dose adjusted to 100 mg twice a day and 200 mg at that time. Gradually, the patient's affect was brighter. The patient was less irritable and less agitated. She also was able to follow directions easily. The patient was accepted in [facility] and the patient was discharged there. Physical examination was basically with no major behavioral problems. Also, blood workup was basically within normal. AFTER DISCHARGE PLANS: The patient discharged from the hospital with plans to continue her treatment as an outpatient. EXPECTED OUTCOME AFTER DISCHARGE: Fair if the patient continues with her outpatient treatment and follow up with discharge plans. [facility]# [id number]
== END 2019-05-06 15:50 | DRG 885 ==
LOC: GERO 05:45
PROVIDERS: ADMIT Psychiatry & Neurology Psychiatry; ATTEND Psychiatry & Neurology Psychiatry
DX: F30.2 Manic episode, severe with psychotic symptoms (principal); G93.40 Encephalopathy, unspecified; F29 Unspecified psychosis not due to a substance or known physiological condition
CPT/HCPCS: 83036-90; 90732; 90899; 97530; G0410; J7051; Q0177; X3904; Z7610

== ENCOUNTER 2019-10-09 11:21 | Inpatient (IN) | payer MEDICARE, OTHER ==
[2019-10-09 21:55] VITALS: BP 126/75
[2019-10-09] MEDS ORDERED: Magnesium Hydroxide (MOM) 30 mL UDC PO PRN (22:11)
[2019-10-09] MEDS ORDERED: Maalox 30 mL Cup PO PRN (22:11)
--- NOTE | 2019-10-10 07:20 | Psychiatric Evaluation ---
DATE OF SERVICE: 10/09/2019 PSYCHIATRIC INITIAL EVALUATION AND MENTAL STATUS EXAMINATION AGE: 59. SEX: Female. PHYSICIAN: Dr. Chavez. CHIEF COMPLAINT: Agitation and aggressive behavior. HISTORY OF PRESENT ILLNESS: The patient is a 59-year-old female who was admitted to the hospital from [facility] where she is under my care as well as Dr. Jaime roger. The patient has been agitated and aggressive with the staff and also has been having difficulty following directions. The patient also has been restless and has been in angry and in irritable mood. The patient also is still having severe mood swings. The patient also is interacting with paranoia and is easily agitated. Patient also was not able to follow directions. Staff was not able to handle her, and patient was transferred to the hospital. PAST PSYCHIATRIC HISTORY: The patient has multiple psychiatric hospitalizations and last hospitalization was in April 2019. PAST MEDICAL HISTORY: The patient has a history of abdominal hernia as well as dyslipidemia, gout and encephalopathy. SOCIAL HISTORY: The patient lives in [facility]. No known alcohol or street drug use. MENTAL STATUS EXAMINATION: The patient appears older than her stated age. Anxious. Flat affect. Irritable mood. Thought processes are circumstantial, but also with poverty of speech. The patient denies any hallucinations, but she seems to be actively responding. The patient denies any suicidal or homicidal ideations. The patient is alert, but seems to be disoriented to time, place, person and situation. Impaired immediate and recent memory, but intact remote memory. Poor insight and poor judgment. ASSESSMENT: PRIMARY DIAGNOSIS: Unspecified psychosis. Rule out schizophrenic disorder. SECONDARY DIAGNOSIS: Rule out dementia with psychosis and behavioral disturbances, moderate to severe. TREATMENT PLAN: We will monitor the patient's behavior and condition closely. We will restart the patient's medications. Also, we will follow up with discharge plans. ESTIMATED LENGTH OF STAY: 4-6 days. PATIENT'S STRENGTHS AND WEAKNESSES: The patient is compliant with taking her medications. Weakness is her ineffective coping and poor impulse control. DISCHARGE PLANS: The patient will be discharged back to [facility] and outpatient treatment and followup will continue there. JOB# [id number]
[2019-10-10] MEDS: Multivitamin w/ Minerals Tab PO SCH (08:29)
--- NOTE | 2019-10-10 17:11 | History & Physical ---
ADMIT DATE: 10/10/2019 CHIEF COMPLAINT: Transfer to [facility], who is medically cleared. HISTORY OF PRESENT ILLNESS: A 59-year-old female who is a resident of [facility], was admitted here, is medically cleared from [facility]. The patient apparently was noted with increase of agitation and verbally abusive towards nursing staff at the custodial. For this reason, the patient is admitted here to the Geropsych Unit. PAST MEDICAL HISTORY: Dysphagia, encephalopathy, insomnia, hyperlipidemia, gait instability, dementia, schizophrenia, anxiety. PAST SURGICAL HISTORY: Abdominal hernia surgery. ALLERGIES: No drug allergies. HOME MEDICATIONS: See medication list. REVIEW OF SYSTEMS: Unable to obtain, the patient is very aggressive. PHYSICAL EXAMINATION: GENERAL: Elderly female, awake, confused, aggressive, combative. VITAL SIGNS: Temperature 96.7, heart rate 60, blood pressure 126/75, respirations 20, O2 94%. HEENT: Head normocephalic, atraumatic. NECK: Supple. No mass. LUNGS: Clear bilaterally. HEART: Regular rate and rhythm. ABDOMEN: Soft, nontender. ASSESSMENT: Agitation, dysphagia, insomnia, hyperlipidemia, gait instability, dementia, schizophrenia, and anxiety. PLAN: We will continue the patient's home medications. Fall precautions will be initiated. Aspiration precautions. We will continue to follow this patient daily. [facility]# [id number]
[2019-10-11] MEDS: Multivitamin w/ Minerals Tab PO SCH (09:53)
--- NOTE | 2019-10-11 10:10 | Internal Medicine Prog Note ---
Internal Medicine Subjective - Subjective Service Date: 10/11/19 Patient seen and examined:: without staff Patient is:: awake Per staff patient has:: no adverse event Internal Medicine Objective - Physical Exam Vitals and I&O: Vital Signs Temp 97.7 F 10/11/19 05:59 Pulse 64 10/11/19 05:59 Resp 19 10/11/19 05:59 BP 97/65 10/11/19 05:59 Pulse Ox 98 10/11/19 05:59 Intake & Output 10/10/19 10/11/19 10/11/19 18:59 06:59 18:59 Intake Total 1000 340 Balance 1000 340 Intake: Oral 1000 340 Other: # Voids 4 1 # Bowel Movements 1 0 Active Medications: Current Medications Acetaminophen (Tylenol) 650 mg PO Q4H PRN PRN Reason: Pain (Mild 1-3) Stop: 12/08/19 22:10 Acetaminophen (Tylenol) 650 mg PO Q4H PRN PRN Reason: temp above 101 Stop: 12/08/19 23:25 Al Hydrox/Mg Hydrox/Simethicone (Maalox) 30 ml PO Q4HR PRN PRN Reason: GI DISTRESS Stop: 12/08/19 22:10 Ascorbic Acid (Vitamin C) 500 mg PO DAILY [facility] Stop: 12/09/19 08:59 Last Admin: 10/11/19 09:52 Dose: 500 mg Divalproex Sodium (Depakote Dr) 125 mg PO Q12HR SRINIVASA; Protocol Stop: 12/09/19 08:59 Last Admin: 10/11/19 09:52 Dose: 125 mg Docusate Sodium (Colace) 100 mg PO DAILY SRINIVASA Stop: 12/09/19 08:59 Last Admin: 10/11/19 09:52 Dose: 100 mg Hydroxyzine Pamoate (Vistaril) 25 mg PO BID SRINIVASA; Protocol Stop: 12/09/19 08:59 Last Admin: 10/11/19 09:52 Dose: 25 mg Lorazepam (Ativan) 0.5 mg PO Q4HR PRN; Protocol PRN Reason: Agitation Stop: 11/08/19 22:10 Last Admin: 10/11/19 03:07 Dose: 0.5 mg Magnesium Hydroxide (Milk Of Magnesia) 30 ml PO HS PRN PRN Reason: Constipation Quetiapine Fumarate (Seroquel) 200 mg PO HS SRINIVASA; Protocol Stop: 12/09/19 20:59 Last Admin: 10/10/19 20:35 Dose: Not Given Quetiapine Fumarate 100 mg/ (Quetiapine Fumarate 50 mg) 150 mg PO BID SRINIVASA Stop: 12/09/19 16:59 Last Admin: 10/11/19 09:53 Dose: 150 mg Simvastatin (Zocor) 20 mg PO HS SRINIVASA; Protocol Stop: 12/09/19 20:59 Last Admin: 10/10/19 20:35 Dose: Not Given Zolpidem Tartrate (Ambien) 5 mg PO HS PRN PRN Reason: Insomnia Stop: 12/08/19 23:19 Last Admin: 10/11/19 01:26 Dose: 5 mg General: alert, demented HEENT: NC/AT Neck: Supple, No JVD Lungs: CTAB Cardiovascular: RRR Abdomen: soft, non-tender Extremities: clear Internal Medicine Assmt/Plan - Assessment Assessment: agitation dysphagia insomnia hld unsteady gait dementia schizophrenia anxiety - Plan Plan: fall precaution monitor behavior
--- NOTE | 2019-10-11 22:01 | Progress Notes ---
DATE: SUBJECTIVE: The patient was seen, chart reviewed and discussed with staff. The patient continues to be very irritable, aggressive, requiring multiple redirections, has difficulty following directions, often seen quite angry and irritable as well as paranoid and accusatory. She has, however, been compliant with medications, denying any side effects. PLAN: The patient continues to be aggressive and irritable, so that she will require inpatient care center and treatment. We will monitor on a daily basis for response to medications and titrate medications as needed. JOB# [id number]
[2019-10-12] MEDS: Multivitamin w/ Minerals Tab PO SCH (08:23)
--- NOTE | 2019-10-12 17:20 | Progress Notes ---
DATE: 10/12/2019 SUBJECTIVE: A 59-year-old female coming in from [facility] agitated, aggressive, difficulty following directions, restless, angry, irritable, severe mood swings, paranoias. On [id number], the patient poorly oriented, not really wanting to speak with me, confused, disorganized to have a hard time speaking with her. She does not want to talk to me, opens her eyes and closes her eyes. Time spent mostly while chart reviewed, discussed with staff, screaming for no apparent reasons, hostile, agitated. Staff having a hard time controlling her behaviors, labile, noting she is AO x 1 only, very impulsive, unpredictable. Medications were reviewed. Labs reviewed. Vitals were reviewed. Sometimes refusing vitals, blood pressure 90/64, pulse of 84. Medications were noted. Currently on dosing of Seroquel. MENTAL STATUS EXAMINATION: Stated age, sleeping, arousable, does not want to talk to me. Poorly oriented, impulsive, loud at times. DIAGNOSIS: Mood, unspecified; psychosis, unspecified; rule out schizophrenia; possible dementia. ASSESSMENT: A 59-year-old female. Concerns for mood disorder, psychotic disorder agitated, still aggressive, screaming. PLAN: We will continue to monitor. Difficult to assess fully, some complications with this case given her behaviors, multiple medical problems on top of the behavioral disturbances. We will continue dosing of Seroquel. ADDENDUM The patient started to escalate, wandering, intrusive, going into other patients' rooms, wandering around the unit, talking to the sullivan, having a conversation with the paintings. Haldol cocktail ordered. The patient escalating, staff concerned. JOB# [id number]
[2019-10-13] MEDS: Multivitamin w/ Minerals Tab PO SCH (08:37)
--- NOTE | 2019-10-13 21:00 | Progress Notes ---
DATE: PSYCHIATRIC PROGRESS NOTE SUBJECTIVE: Chart reviewed and the patient interviewed. Also discussed the patient's condition with the staff and reviewed records and labs. The patient is still actively hallucinating and is still in irritable and angry mood. The patient also is rambling and her thought processes are circumstantial and tangential with flight of ideas. The patient also has difficulty following any of directions. She also easily agitated and gets more agitated when staff tries to redirect her. Gait is steady. Vital signs are stable and no new labs available for review. MENTAL STATUS EXAMINATION: Unkempt. Anxious. Thought processes are disorganized with flight of ideas. The patient denies any hallucinations, but actively responding and actively talking to herself. ASSESSMENT: The patient is still psychotic and agitated. TREATMENT PLAN: We will continue to monitor her behavior and her condition closely. Also, continue to work on her irritability and agitation as well as her psychosis. Also, continue adjusting psychotropic medications. ESTIMATED LENGTH OF STAY: 2-4 days. REASON FOR CONTINUED HOSPITAL STAY: The patient is still psychotic and still needs close monitoring and adjusting her medications. JOB# [id number]
[2019-10-14] MEDS: Multivitamin w/ Minerals Tab PO SCH (08:49)
--- NOTE | 2019-10-14 12:28 | Progress Notes ---
DATE: 10/14/2019 SUBJECTIVE: A 59-year-old female who I saw a few days ago agitated, aggressive, hard to follow directions, seen by Dr. Chavez yesterday, noted to be actively hallucinating, irritable, angry, rambling, mumbling, hard to really follow her thought processes. When I see her today, she seems somewhat internally preoccupied, wandering, still talking to the sullivan, staring blankly off, hard to really assess, very difficult historian. Slept for about 8 hours. Poorly oriented to self only. I spent some time trying to speak with her, but it was pretty challenging. She is pretty confused, disorganized, gets easily agitated, going into other people's rooms. Medications were reviewed. Vitals were reviewed. The labs were reviewed. Most recent blood pressure 97/62, pulse of 92. MENTAL STATUS EXAMINATION: Stated age. Fair eye contact. Aversive at times, pacing, wandering, very confused, disoriented, mumbling to self, poor impulse control, poor insight, disoriented. ASSESSMENT: A 59-year-old female with ongoing confusion, disorientation and poor impulse control. PLAN: Treatment plan includes group as well as milieu therapy. Complex case, hard to control symptoms, continue to slowly titrate dosing of antipsychotic medications. Consider dose increase of Depakote. [facility]# [id number]
--- NOTE | 2019-10-14 14:29 | Internal Medicine Prog Note ---
Internal Medicine Subjective - Subjective Service Date: 10/14/19 Patient is:: awake Per staff patient has:: no adverse event Internal Medicine Objective - Physical Exam Vitals and I&O: Vital Signs Temp 96.9 F 10/14/19 06:21 Pulse 92 10/14/19 06:21 Resp 18 10/14/19 08:00 BP 97/62 10/14/19 06:21 Pulse Ox 93 10/14/19 06:21 Intake & Output 10/13/19 10/14/19 10/14/19 18:59 06:59 18:59 Intake Total 1000 360 Balance 1000 360 Intake: Oral 1000 360 Other: # Voids 4 2 # Bowel Movements 1 0 Stool Characteristics Soft Brown Active Medications: Current Medications Acetaminophen (Tylenol) 650 mg PO Q4H PRN PRN Reason: Pain (Mild 1-3) Stop: 12/08/19 22:10 Last Admin: 10/14/19 01:21 Dose: 650 mg Acetaminophen (Tylenol) 650 mg PO Q4H PRN PRN Reason: temp above 101 Stop: 12/08/19 23:25 Al Hydrox/Mg Hydrox/Simethicone (Maalox) 30 ml PO Q4HR PRN PRN Reason: GI DISTRESS Stop: 12/08/19 22:10 Ascorbic Acid (Vitamin C) 500 mg PO DAILY [facility] Stop: 12/09/19 08:59 Last Admin: 10/14/19 08:49 Dose: 500 mg Divalproex Sodium (Depakote Dr) 125 mg PO Q12HR [facility]; Protocol Stop: 12/09/19 08:59 Last Admin: 10/14/19 08:49 Dose: 125 mg Docusate Sodium (Colace) 100 mg PO DAILY [facility] Stop: 12/09/19 08:59 Last Admin: 10/14/19 08:49 Dose: 100 mg Hydroxyzine Pamoate (Vistaril) 25 mg PO BID [facility]; Protocol Stop: 12/09/19 08:59 Last Admin: 10/14/19 08:49 Dose: 25 mg Lorazepam (Ativan) 0.5 mg PO Q4HR PRN; Protocol PRN Reason: Agitation Stop: 11/08/19 22:10 Last Admin: 10/13/19 21:27 Dose: 0.5 mg Magnesium Hydroxide (Milk Of Magnesia) 30 ml PO HS PRN PRN Reason: Constipation Quetiapine Fumarate (Seroquel) 200 mg PO HS SRINIVASA; Protocol Stop: 12/09/19 20:59 Last Admin: 10/13/19 20:19 Dose: 200 mg Quetiapine Fumarate 100 mg/ (Quetiapine Fumarate 50 mg) 150 mg PO BID SRINIVASA Stop: 12/09/19 16:59 Last Admin: 10/14/19 08:49 Dose: 150 mg Simvastatin (Zocor) 20 mg PO HS SRINIVASA; Protocol Stop: 12/09/19 20:59 Last Admin: 10/13/19 20:19 Dose: 20 mg Zolpidem Tartrate (Ambien) 5 mg PO HS PRN PRN Reason: Insomnia Stop: 12/08/19 23:19 Last Admin: 10/13/19 20:19 Dose: 5 mg General: alert, demented HEENT: NC/AT Neck: Supple, No JVD Lungs: CTAB Cardiovascular: RRR Abdomen: soft, non-tender Extremities: clear Internal Medicine Assmt/Plan - Assessment Assessment: agitation dysphagia insomnia hld unsteady gait dementia schizophrenia anxiety - Plan Plan: fall precaution monitor behavior Nutritional Asmnt/Malnutr-PDOC - Dietary Evaluation Malnutrition Findings (Please click <Entered> for more info): Nutritional Asmnt/Malnutrition Start: 10/13/19 14: 20 Text: Status: Complete Freq: Protocol: Document 10/13/19 14:20 MACK (Rec: 10/13/19 14:24 [id number]) Nutritional Asmnt/Malnutrition Patient General Information Nutritional Screening Moderate Risk Diagnosis Psychosis Pertinent Medical Hx/Surgical Hx Dysphagia, Encephalopathy, Insomnia, Hyperlipidemia, Dementia, Schizophrenia, anxiety, Abdominal Hernia Sx Subjective Information Pt is a 59-year-old female admitted on 10/08 d/t increased agitation and verbal abusing long-term staff. Pt is eating an estimated 90% of meals Per Meal/Nutrition Activity Record. Dietary is currently providing an estimated 2000 kcals and 100 gm Pro, per Pt PO intake this is providing an estimated 1800 kcals and 90gm Pro to meet 100+% kcal and 100+% Pro needs . Anthropometrics HT: 5 FT WT: 96 LB (43.64 kg) BMI: 18.78 (normal) GI/ Skin Integrity GI: WNL, Soft, Non-tender BM: 5/1 x1 I/O: 800/Not Noted Skin: WNL, Intact, Dryness Charlie: 18 Diet Order: Pureed Estimated Energy Needs: ( Geriatric, CBW) 9416-3255 kcals (25-30 kcals/ kg) 45-55g Pro (1.0-1.2 g/kg) 0639-3760 ml (25-30 ml/kg) Current Diet Order/ Nutrition Support Pureed Pertinent Medications Maalox (PRN), Vitamin C, Colace, MOM (PRN) Pertinent Labs 10/08: A1c 5.9%, AST 69, Cholesterol 245, LDL 120, Glucose 101, GFR 65 Nutritional Hx/Data Height 5 ft Height (Calculated Centimeters) 152.4 Current Weight (lbs) 96 lb Weight (Calculated Kilograms) 43.5 Weight (Calculated Grams) 80152.9 [place] Body Weight 100 LB (45.45 kg) % [place] Body Weight 96 Body Mass Index (BMI) 18.7 Weight Status Approriate GI Symptoms Last BM 10/09 x1 Skin Integrity/Comment: Skin: WNL, Intact, Dryness Charlie: 18 Estimated Nutritional Goals BEE in Kcals: Using Current wt Calories/Kcals/Kg 25-30 Kcals Calculated 0969-5524 Protein: Using Current wt Protein g/k.0-1.2 Protein Calculated 45-55 Fluid: ml 7648-8804 ml (25-30 ml/kg) Nutritional Problem 1. Problem Problem Altered nutrition related labs Etiology r/t endocrine dysfunction Signs/Symptoms: aeb labs (10/08) A1c 5.9%, AST 69, Cholesterol 245, LDL 120, Glucose 101, GFR 65. Intervention/Recommendation Comments Continue pureed diet as tolerated. Expected Outcomes/Goals Expected Outcomes/Goals 1.PO intake to continue to meet >75% of estimated nutritional needs. 2.Monitor PO intake, wt, nutrition related labs, and skin integrity. 3.F/U as low risk in 7-10 days , 10/19-10/22.
[2019-10-15] MEDS: Multivitamin w/ Minerals Tab PO SCH (08:45)
--- NOTE | 2019-10-15 12:55 | Progress Notes ---
DATE: 10/15/2019 SUBJECTIVE: A 59-year-old female, agitated, aggressive, actively hallucinating, mumbling, asking for cigarettes, very ruminative. Staff noting she requires a lot of prompting, redirection. She did sleep pretty well last night, poor orientation, hard to get any information out of her. She just keeps asking for cigarettes over and over. Staff noting she has been agitated, labile at times. Medications reviewed. Labs were reviewed. Vitals were reviewed. Refusing vitals at times. MENTAL STATUS EXAMINATION: Stated age, unkempt, fair eye contact, loud, making some nonsensical comments. DIAGNOSIS: Likely schizophrenia, rule out schizoaffective. ASSESSMENT: A 59-year-old female who remains psychotic, still noted to be with perceptual disturbances, voices, mumbling to self. PLAN: We will increase dosing of Seroquel, ongoing symptoms of psychosis. JOB# [id number]
[2019-10-16] MEDS: Multivitamin w/ Minerals Tab PO SCH (08:26)
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
--- NOTE | 2019-10-16 18:43 | Progress Notes ---
DATE: PSYCHIATRIC PROGRESS NOTE SUBJECTIVE: Chart reviewed and the patient interviewed. Also discussed the patient's condition with the staff and reviewed records and labs. The patient's affect is brighter. The patient is less agitated and less irritable. The patient also is interacting more. She still has disorganized thoughts, but she is less agitated and less irritable. At the same time, the patient is compliant with taking her medications with no side effects of medications. The patient's gait is steady and vital signs are stable and no new labs available for review. MENTAL STATUS EXAMINATION: Anxious. Cooperative. Thought processes are mainly goal directed. TREATMENT PLAN: We will continue monitoring her condition closely. Also, continue to work on discharge plans and possible placement in [place]. At the same time, we will continue monitoring her medications and followup. ESTIMATED LENGTH OF STAY: One to two days. REASON FOR CONTINUED HOSPITAL STAY: Waiting for placement in [place]. JOB# [id number]
[2019-10-17] MEDS: Multivitamin w/ Minerals Tab PO SCH (08:10)
--- NOTE | 2019-10-17 08:29 | Progress Notes ---
DATE: 10/17/2019 SUBJECTIVE: Chart was reviewed and the patient interviewed. Also discussed the patient's condition with the staff and reviewed records and labs. The patient is still anxious and she is still restless. The patient also is still at times needs redirections, but her affect is brighter and the patient is calmer. She is also interacting more. The patient denies any intention to harm herself or others. The patient also is motivated for treatment and easier to redirect her. Also, no side effects of medications. ASSESSMENT: The patient is calm and not suicidal or homicidal. TREATMENT PLAN: Planning to discharge the patient to [facility]. Outpatient treatment and followup to continue as an outpatient. Also, we will follow the patient there. At the time of discharge, the patient was not agitated or aggressive and was cooperative and compliant with medications and treatment. JOB# [id number]
--- NOTE | 2019-10-17 08:39 | Discharge Summary ---
DATE OF DISCHARGE: 10/17/2019 AGE: 59. SEX: Female. PHYSICIAN: Dr. Chavez. FINAL DIAGNOSIS: Schizoaffective disorder, mixed type, severe, with psychotic features. SECONDARY DIAGNOSIS: Dementia, mild to moderate, with behavioral disturbances and psychotic features. REASON FOR HOSPITALIZATION: The patient was admitted to the hospital because of increased agitation and behavioral issues in [facility] where she lives and the patient was severely paranoid and easily agitated and was not able to follow staff directions. HOSPITAL COURSE: The patient continued to be severely irritable and agitated. The patient also was restless and pacing. The patient started on Depakote 125 mg twice a day and also Seroquel in a dose of 150 mg twice a day and 225 mg at bedtime. The patient's affect was brighter. The patient was calmer and easier to redirect her. The patient was not agitated or aggressive and was able to follow instructions and directions. PHYSICAL EXAMINATION: Showed no major medical problems for the patient and the patient was monitored by Dr. Doe. Blood workup was also basically within normal. AFTER DISCHARGE PLANS: The patient discharged from the hospital, went to [facility] with plans to follow her there. JOB# [id number]
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
[2019-10-18] MEDS: Multivitamin w/ Minerals Tab PO SCH (08:19)
--- NOTE | 2019-10-18 20:58 | Psych Progress Note ---
Psych Progress Note - Intro Date of Progress Note: 10/18/19 - Assessment Assessment: Patient interviewed, case discussed with staff, chart and records reviewed. The patient was pacing the gomez hallway. The patient is anxious as she is rambling incoherently to herself. She is not making any sense. She is uncooperative with the interview and begins yelling out loud. No side effects noted to the medication. Uncooperative otherwise. - Vitals, I&O Vitals: Vital Signs - 24 hr 10/18/19 10/18/19 08:00 19:48 RR 18 19 - Objective Psych General Appearance: Report: No eye-contact Psych Behavior: Report: Uncooperative, Restless Psych Speech: Report: Mumbled Psych Mood: Report: Angry Psych Affect: Report: Labile Psych Thought Process: Report: Auditory Psych Cognition: Report: Confused Psych Insight: Report: Impaired Psych Judgement: Report: Impaired - Plan Plan: Continue current treatment plan, continue medications, will continue to monitor behavior. - Review of Relevant Data Review of Relevant Data: I have reviewed the following items and time cain (where applicable) has been applied. - Medications Current Medications: Current Medications Acetaminophen (Tylenol) 650 mg PO Q4H PRN PRN Reason: Pain (Mild 1-3) Stop: 12/08/19 22:10 Last Admin: 10/14/19 01:21 Dose: 650 mg Acetaminophen (Tylenol) 650 mg PO Q4H PRN PRN Reason: temp above 101 Stop: 12/08/19 23:25 Al Hydrox/Mg Hydrox/Simethicone (Maalox) 30 ml PO Q4HR PRN PRN Reason: GI DISTRESS Stop: 12/08/19 22:10 Ascorbic Acid (Vitamin C) 500 mg PO DAILY [facility] Stop: 12/09/19 08:59 Last Admin: 10/18/19 08:19 Dose: 500 mg Divalproex Sodium (Depakote Dr) 125 mg PO Q12HR [facility]; Protocol Stop: 12/09/19 08:59 Last Admin: 10/18/19 08:19 Dose: 125 mg Docusate Sodium (Colace) 100 mg PO DAILY [facility] Stop: 12/09/19 08:59 Last Admin: 10/18/19 08:19 Dose: 100 mg Hydroxyzine Pamoate (Vistaril) 25 mg PO BID [facility]; Protocol Stop: 12/09/19 08:59 Last Admin: 10/18/19 16:21 Dose: 25 mg Lorazepam (Ativan) 0.5 mg PO Q4HR PRN; Protocol PRN Reason: Anxiety Stop: 12/16/19 13:21 Magnesium Hydroxide (Milk Of Magnesia) 30 ml PO HS PRN PRN Reason: Constipation Quetiapine Fumarate 100 mg/ (Quetiapine Fumarate 50 mg) 150 mg PO BID [facility] Stop: 12/09/19 16:59 Last Admin: 10/18/19 16:21 Dose: 150 mg Quetiapine Fumarate 200 mg/ (Quetiapine Fumarate 25 mg) 225 mg PO HS [facility] Stop: 12/14/19 20:59 Last Admin: 10/17/19 21:10 Dose: 225 mg Simvastatin (Zocor) 20 mg PO HS [facility]; Protocol Stop: 12/09/19 20:59 Last Admin: 10/17/19 21:09 Dose: 20 mg Zolpidem Tartrate (Ambien) 5 mg PO HS PRN PRN Reason: Insomnia Stop: 12/16/19 13:30 Last Admin: 10/17/19 21:09 Dose: 5 mg
[2019-10-19] MEDS: Multivitamin w/ Minerals Tab PO SCH (08:46)
--- NOTE | 2019-10-19 19:10 | Psych Progress Note ---
Psych Progress Note - Intro Date of Progress Note: 10/19/19 - Assessment Assessment: Patient interviewed, case discussed with staff, chart and records reviewed. The patient was pacing the gomez hallway. The patient is anxious as she is rambling incoherently to herself. She is not making any sense. She is uncooperative with the interview and begins yelling out loud. No side effects noted to the medication. Uncooperative otherwise. - Vitals, I&O Vitals: Vital Signs - 24 hr 10/18/19 10/19/19 10/19/19 19:48 01:08 06:21 Temp 97.2 F HR 73 RR 19 19 20 BP 129/77 O2 Sat % 93 10/19/19 07:12 Temp HR RR 18 BP O2 Sat % - Objective Psych General Appearance: Report: No eye-contact Psych Behavior: Report: Uncooperative, Restless Psych Speech: Report: Mumbled Psych Mood: Report: Angry Psych Affect: Report: Labile Psych Thought Process: Report: Auditory Psych Cognition: Report: Confused Psych Insight: Report: Impaired Psych Judgement: Report: Impaired - Plan Plan: Continue current treatment plan, will adjust medications, will continue to monitor behavior. - Review of Relevant Data Review of Relevant Data: I have reviewed the following items and time cain (where applicable) has been applied. - Medications Current Medications: Current Medications Acetaminophen (Tylenol) 650 mg PO Q4H PRN PRN Reason: Pain (Mild 1-3) Stop: 12/08/19 22:10 Last Admin: 10/14/19 01:21 Dose: 650 mg Acetaminophen (Tylenol) 650 mg PO Q4H PRN PRN Reason: temp above 101 Stop: 12/08/19 23:25 Al Hydrox/Mg Hydrox/Simethicone (Maalox) 30 ml PO Q4HR PRN PRN Reason: GI DISTRESS Stop: 12/08/19 22:10 Ascorbic Acid (Vitamin C) 500 mg PO DAILY [facility] Stop: 12/09/19 08:59 Last Admin: 10/19/19 08:46 Dose: 500 mg Divalproex Sodium (Depakote Dr) 125 mg PO Q8HR [facility]; Protocol Stop: 12/18/19 12:59 Last Admin: 10/19/19 16:30 Dose: Not Given Docusate Sodium (Colace) 100 mg PO DAILY [facility] Stop: 12/09/19 08:59 Last Admin: 10/19/19 08:46 Dose: 100 mg Hydroxyzine Pamoate (Vistaril) 25 mg PO BID [facility]; Protocol Stop: 12/09/19 08:59 Last Admin: 10/19/19 16:29 Dose: 25 mg Lorazepam (Ativan) 0.5 mg PO Q4HR PRN; Protocol PRN Reason: Anxiety Stop: 12/16/19 13:21 Magnesium Hydroxide (Milk Of Magnesia) 30 ml PO HS PRN PRN Reason: Constipation Quetiapine Fumarate 200 mg/ (Quetiapine Fumarate 25 mg) 225 mg PO HS [facility] Stop: 12/14/19 20:59 Last Admin: 10/18/19 21:02 Dose: 225 mg Quetiapine Fumarate 100 mg/Quetiapine Fumarate 50 mg/Quetiapine Fumarate 25 mg 175 mg PO BID [facility] Stop: 12/18/19 16:59 Last Admin: 10/19/19 16:29 Dose: 175 mg Simvastatin (Zocor) 20 mg PO HS [facility]; Protocol Stop: 12/09/19 20:59 Last Admin: 10/18/19 21:03 Dose: 20 mg Zolpidem Tartrate (Ambien) 5 mg PO HS PRN PRN Reason: Insomnia Stop: 12/16/19 13:30 Last Admin: 10/18/19 21:03 Dose: 5 mg
[2019-10-20] MEDS: Multivitamin w/ Minerals Tab PO SCH (09:15)
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
--- NOTE | 2019-10-20 20:32 | Progress Notes ---
DATE: 10/20/2019 SUBJECTIVE: Chart reviewed and the patient interviewed. Also discussed the patient's condition with the staff and reviewed records and labs. The patient at times needs redirections and she is still responding, but no major behavioral problems. The patient seems to be reaching her baseline. The patient denies any side effects of medications. She is compliant with taking medications with no side effects. Gait is steady. Vital signs are stable and no new labs available for review. TREATMENT PLAN: Planning to discharge the patient and she was supposed to leave last week, but discharge order was never followed through. We will work on her discharge and the patient is supposed to go to [facility] and we will discharge again the patient today. JOB# [id number]
[2019-10-21] MEDS: Multivitamin w/ Minerals Tab PO SCH (08:05)
[2019-10-21] MEDS ORDERED: Haloperidol Lactate 5 mg/mL 1mL Vial IM ONE (09:02)
[2019-10-21] MEDS ORDERED: Haloperidol Lactate 5 mg/mL 1mL Vial ONE (09:07)
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
[2019-10-22] MEDS: Multivitamin w/ Minerals Tab PO SCH (08:17)
[2019-10-23] MEDS: Multivitamin w/ Minerals Tab PO SCH (09:14)
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
[2019-10-24] MEDS: Multivitamin w/ Minerals Tab PO SCH (08:23)
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
--- NOTE | 2019-10-24 16:18 | Progress Notes ---
DATE: 10/23/2019 SUBJECTIVE: Chart was reviewed and the patient interviewed. Also discussed the patient's condition with the staff and reviewed records and labs. The patient's affect is brighter and the patient was less agitated and less irritable. The patient also still has episodes of being argumentative, but no major behavior problems. She also compliant is taking her medications with no side effects of medications. The patient's gait is steady. Vital signs are stable and no new labs available for review. MENTAL STATUS EXAMINATION: Anxious. Cooperative. Thought process is circumstantial, but no flight of ideas. ASSESSMENT: The patient is less irritable and less agitated. TREATMENT PLAN: Discussed with complex case manager on discharge plans and she is still looking for placement for the patient and no place accepted the patient yet, but she said that she would get her back to [facility]. At the same time, the patient is still interacting more and she denies any suicidal or homicidal. Planning to discharge the patient as soon as placement is available. JOB# [id number]
--- NOTE | 2019-10-24 16:18 | Progress Notes ---
DATE: 10/22/2019 SUBJECTIVE: Chart reviewed and the patient interviewed. Also discussed the patient's condition with the staff and reviewed records and labs. The patient continued to be in irritable mood and she is still agitated, but today seems to be calmer than yesterday and slightly easier to redirect her. The patient also is less angry and not bounding on doors. The patient is still preoccupied and seems suspicious and paranoid, but easy to redirect her. She denies any hallucinations, but she still seems to be responding. The patient's gait is steady. Vital signs are stable and no new labs available for review. MENTAL STATUS EXAMINATION: Anxious. Irritable mood. Thought process is circumstantial, but no flight of ideas. She is preoccupied. ASSESSMENT: The patient is still psychotic and can be dangerous to others. TREATMENT PLAN: Continue to monitor behavior and condition closely. Also, we will get a Depakote blood level and continue to follow up. ESTIMATED LENGTH OF STAY: 1-3 days depending on placement. REASON FOR CONTINUED HOSPITAL STAY: The patient still needs adjustment of her medications and placement. JOB# [id number]
--- NOTE | 2019-10-24 19:29 | Progress Notes ---
DATE: SUBJECTIVE: Chart was reviewed and the patient interviewed. Also discussed the patient's condition with the staff and reviewed records and labs. The patient is calmer and she is less irritable and less agitated. The patient also is interacting more, easier to redirect her. The patient denies hallucinations or delusions. Gait is steady. Vital signs are stable. No new labs available for review. MENTAL STATUS EXAMINATION: Calm. Cooperative. Denies hallucinations or delusions. Denies any thoughts of suicide or homicide. TREATMENT PLAN: We will discharge the patient today back to [facility]. I spoke with Denys in [facility] who accepted the patient back. The patient will be discharged to [facility] with plans for follow her there. At the time of discharge, the patient was calm and cooperative and was not suicidal or homicidal. JOB# [id number]
[2019-10-25] MEDS: Multivitamin w/ Minerals Tab PO SCH (09:46)
--- NOTE | 2019-10-25 11:01 | Internal Medicine Prog Note ---
Internal Medicine Subjective - Subjective Service Date: 10/25/19 Patient seen and examined:: without staff Patient is:: awake, confused Per staff patient has:: no adverse event, no episodes of fall, unstable gait, confused, tolerating meds Internal Medicine Objective - Physical Exam Vitals and I&O: Vital Signs Temp 97.5 F 10/25/19 06:09 Pulse 67 10/25/19 06:09 Resp 20 10/25/19 06:09 BP 103/64 10/25/19 06:09 Pulse Ox 93 10/25/19 06:09 Intake & Output 10/24/19 10/25/19 10/25/19 18:59 06:59 18:59 Intake Total 1300 360 Balance 1300 360 Intake: Oral 1300 360 Other: # Voids 3 1 # Bowel Movements 0 0 Active Medications: Current Medications Acetaminophen (Tylenol) 650 mg PO Q4H PRN PRN Reason: Pain (Mild 1-3) Stop: 12/08/19 22:10 Last Admin: 10/14/19 01:21 Dose: 650 mg Acetaminophen (Tylenol) 650 mg PO Q4H PRN PRN Reason: temp above 101 Stop: 12/08/19 23:25 Al Hydrox/Mg Hydrox/Simethicone (Maalox) 30 ml PO Q4HR PRN PRN Reason: GI DISTRESS Stop: 12/08/19 22:10 Ascorbic Acid (Vitamin C) 500 mg PO DAILY [facility] Stop: 12/09/19 08:59 Last Admin: 10/25/19 09:45 Dose: 500 mg Diphenhydramine HCl (Benadryl 50 Mg/Ml) 25 mg IM Q4HR PRN PRN Reason: EPS WITH HALDOL Stop: 12/20/19 09:03 Last Admin: 10/21/19 09:27 Dose: 25 mg Divalproex Sodium (Depakote Dr) 500 mg PO BID [facility]; Protocol Stop: 12/20/19 08:59 Last Admin: 10/25/19 09:49 Dose: 500 mg Docusate Sodium (Colace) 100 mg PO DAILY [facility] Stop: 12/09/19 08:59 Last Admin: 10/25/19 09:45 Dose: 100 mg Hydroxyzine Pamoate (Vistaril) 25 mg PO BID [facility]; Protocol Stop: 12/09/19 08:59 Last Admin: 10/25/19 09:46 Dose: 25 mg Lorazepam (Ativan) 0.5 mg PO Q4HR PRN; Protocol PRN Reason: Anxiety Stop: 12/16/19 13:21 Magnesium Hydroxide (Milk Of Magnesia) 30 ml PO HS PRN PRN Reason: Constipation Quetiapine Fumarate (Seroquel) 200 mg PO BID [facility] Stop: 12/19/19 08:59 Last Admin: 10/25/19 09:46 Dose: 200 mg Quetiapine Fumarate 200 mg/ (Quetiapine Fumarate 50 mg) 250 mg PO HS [facility] Stop: 12/20/19 20:59 Last Admin: 10/24/19 21:08 Dose: 250 mg Simvastatin (Zocor) 20 mg PO HS [facility]; Protocol Stop: 12/09/19 20:59 Last Admin: 10/24/19 21:08 Dose: 20 mg Zolpidem Tartrate (Ambien) 5 mg PO HS PRN PRN Reason: Insomnia Stop: 12/16/19 13:30 Last Admin: 10/24/19 21:08 Dose: 5 mg General: alert, demented HEENT: NC/AT Neck: Supple, No JVD Lungs: CTAB Cardiovascular: RRR Abdomen: soft, non-tender Extremities: clear Neurological: unsteady Internal Medicine Assmt/Plan - Assessment Assessment: agitation dysphagia insomnia hyperlipidemia unsteady gait dementia schizophrenia anxiety - Plan Plan: fall precaution monitor behavior continue current treatment follow up with psychiatrist Nutritional Asmnt/Malnutr-PDOC - Dietary Evaluation Malnutrition Findings (Please click <Entered> for more info): Nutritional Asmnt/Malnutrition Start: 10/13/19 14: 20 Text: Status: Complete Freq: Protocol: Document 10/13/19 14:20 MACK (Rec: 10/13/19 14:24 [id number]) Nutritional Asmnt/Malnutrition Patient General Information Nutritional Screening Moderate Risk Diagnosis Psychosis Pertinent Medical Hx/Surgical Hx Dysphagia, Encephalopathy, Insomnia, Hyperlipidemia, Dementia, Schizophrenia, anxiety, Abdominal Hernia Sx Subjective Information Pt is a 59-year-old female admitted on 10/08 d/t increased agitation and verbal abusing usp staff. Pt is eating an estimated 90% of meals Per Meal/Nutrition Activity Record. Dietary is currently providing an estimated 2000 kcals and 100 gm Pro, per Pt PO intake this is providing an estimated 1800 kcals and 90gm Pro to meet 100+% kcal and 100+% Pro needs . Anthropometrics HT: 5 FT WT: 96 LB (43.64 kg) BMI: 18.78 (normal) GI/ Skin Integrity GI: WNL, Soft, Non-tender BM: 10/09 x1 I/O: 800/Not Noted Skin: WNL, Intact, Dryness Charlie: 18 Diet Order: Pureed Estimated Energy Needs: ( Geriatric, CBW) 2605-1499 kcals (25-30 kcals/ kg) 45-55g Pro (1.0-1.2 g/kg) 0116-7535 ml (25-30 ml/kg) Current Diet Order/ Nutrition Support Pureed Pertinent Medications Maalox (PRN), Vitamin C, Colace, MOM (PRN) Pertinent Labs 10/08: A1c 5.9%, AST 69, Cholesterol 245, LDL 120, Glucose 101, GFR 65 Nutritional Hx/Data Height 5 ft Height (Calculated Centimeters) 152.4 Current Weight (lbs) 96 lb Weight (Calculated Kilograms) 43.5 Weight (Calculated Grams) 33902.9 [place] Body Weight 100 LB (45.45 kg) % [place] Body Weight 96 Body Mass Index (BMI) 18.7 Weight Status Approriate GI Symptoms Last BM 10/09 x1 Skin Integrity/Comment: Skin: WNL, Intact, Dryness Charlie: 18 Estimated Nutritional Goals BEE in Kcals: Using Current wt Calories/Kcals/Kg 25-30 Kcals Calculated 0715-5834 Protein: Using Current wt Protein g/k.0-1.2 Protein Calculated 45-55 Fluid: ml 1810-6914 ml (25-30 ml/kg) Nutritional Problem 1. Problem Problem Altered nutrition related labs Etiology r/t endocrine dysfunction Signs/Symptoms: aeb labs (10/08) A1c 5.9%, AST 69, Cholesterol 245, LDL 120, Glucose 101, GFR 65. Intervention/Recommendation Comments Continue pureed diet as tolerated. Expected Outcomes/Goals Expected Outcomes/Goals 1.PO intake to continue to meet >75% of estimated nutritional needs. 2.Monitor PO intake, wt, nutrition related labs, and skin integrity. 3.F/U as low risk in 7-10 days , 10/19-10/22.
--- NOTE | 2019-10-25 22:00 | Progress Notes ---
DATE: 10/25/2019 SUBJECTIVE: A 59-year-old female admitted to the hospital from [facility] under the care of Dr. Sandoval ____. Noted to be agitated, aggressive, difficulty following directions, restless, angry, irritable, severe mood swings, paranoia on [id number], the patient is sleeping, arousable, very irritable, does not want to engage with me this morning unfortunately. Most information was from chart review, staff review. Dr. Chavez noting that she is somewhat less irritable, less agitated, somewhat calmer, per nursing staff slept 8 hours. No distress. Still responding to internal stimuli, irritable, rambling, preoccupied, but more redirectable, seems to be doing well with Seroquel. Medications reviewed. Vitals reviewed. Labs were reviewed. Most recent vitals, blood pressure 103/64, pulse of 67. No overt side effects. MENTAL STATUS: Calm, unfortunately irritable, refusing to speak with me. ASSESSMENT: A 59-year-old female, seems to be showing some signs of improvement. Difficult interview. Time was spent attempting to speak with her. I did not get much out of her. Discussed with staff. Reviewed chart. We will continue to monitor, seems to be calmer and improving pending a safe disposition. JOB# [id number]
[2019-10-26] MEDS: Multivitamin w/ Minerals Tab PO SCH (08:31)
--- NOTE | 2019-10-26 11:39 | Progress Notes ---
DATE: 10/26/2019 SUBJECTIVE: A 59-year-old female currently in the hospital. Staff noting she remains confused, but significantly calmer, still mumbling to self, responding to internal stimuli. Was seen today. Mood "okay." No complaints. Seems to be still internally preoccupied, distracted. Staff noting less impulsive, no agitation, no irritability. Doing better in general. Sleeping much better, more redirectable. Doing well with current dosing of Seroquel. Medications were reviewed. Labs reviewed. Vitals were reviewed. Blood pressure 103/64, pulse of 67. ASSESSMENT: A 59-year-old female, seems to be calmer, may be approaching her baseline, more cooperative, more redirectable. Staff is happy with her progress. Tolerant to medications. No EPS, no akathisia. PLAN: We will continue to monitor. The patient to follow up with Dr. Chavez. JOB# [id number]
--- NOTE | 2019-10-26 15:53 | Internal Medicine Prog Note ---
Internal Medicine Subjective - Subjective Patient is:: awake, confused, other Per staff patient has:: no adverse event, no episodes of fall, unstable gait, confused, tolerating meds Internal Medicine Objective - Physical Exam Vitals and I&O: Vital Signs Temp 97.6 F 10/25/19 14:00 Pulse 84 10/25/19 14:00 Resp 20 10/26/19 07:22 BP 111/76 10/25/19 14:00 Pulse Ox 97 10/25/19 14:00 Intake & Output 10/25/19 10/26/19 10/26/19 18:59 06:59 18:59 Intake Total 1400 950 Balance 1400 950 Intake: Oral 1400 950 Other: # Voids 4 2 # Bowel Movements 1 Active Medications: Current Medications Acetaminophen (Tylenol) 650 mg PO Q4H PRN PRN Reason: Pain (Mild 1-3) Stop: 12/08/19 22:10 Last Admin: 10/14/19 01:21 Dose: 650 mg Acetaminophen (Tylenol) 650 mg PO Q4H PRN PRN Reason: temp above 101 Stop: 12/08/19 23:25 Al Hydrox/Mg Hydrox/Simethicone (Maalox) 30 ml PO Q4HR PRN PRN Reason: GI DISTRESS Stop: 12/08/19 22:10 Ascorbic Acid (Vitamin C) 500 mg PO DAILY [facility] Stop: 12/09/19 08:59 Last Admin: 10/26/19 08:31 Dose: 500 mg Diphenhydramine HCl (Benadryl 50 Mg/Ml) 25 mg IM Q4HR PRN PRN Reason: EPS WITH HALDOL Stop: 12/20/19 09:03 Last Admin: 10/21/19 09:27 Dose: 25 mg Divalproex Sodium (Depakote Dr) 500 mg PO BID [facility]; Protocol Stop: 12/20/19 08:59 Last Admin: 10/26/19 08:31 Dose: 500 mg Docusate Sodium (Colace) 100 mg PO DAILY [facility] Stop: 12/09/19 08:59 Last Admin: 10/26/19 08:31 Dose: 100 mg Hydroxyzine Pamoate (Vistaril) 25 mg PO BID [facility]; Protocol Stop: 12/09/19 08:59 Last Admin: 10/26/19 08:31 Dose: 25 mg Lorazepam (Ativan) 0.5 mg PO Q4HR PRN; Protocol PRN Reason: Anxiety Stop: 12/16/19 13:21 Magnesium Hydroxide (Milk Of Magnesia) 30 ml PO HS PRN PRN Reason: Constipation Quetiapine Fumarate (Seroquel) 200 mg PO BID [facility] Stop: 12/19/19 08:59 Last Admin: 10/26/19 08:31 Dose: 200 mg Quetiapine Fumarate 200 mg/ (Quetiapine Fumarate 50 mg) 250 mg PO HS [facility] Stop: 12/20/19 20:59 Last Admin: 10/25/19 21:26 Dose: 250 mg Simvastatin (Zocor) 20 mg PO HS [facility]; Protocol Stop: 12/09/19 20:59 Last Admin: 10/25/19 21:26 Dose: 20 mg Zolpidem Tartrate (Ambien) 5 mg PO HS PRN PRN Reason: Insomnia Stop: 12/16/19 13:30 Last Admin: 10/24/19 21:08 Dose: 5 mg General: alert, demented HEENT: NC/AT Neck: Supple, No JVD Lungs: CTAB Cardiovascular: RRR Abdomen: soft, non-tender Extremities: clear Neurological: unsteady Internal Medicine Assmt/Plan - Assessment Assessment: Agitation Dysphagia Insomnia Hyperlipidemia Unsteady gait Dementia Schizophrenia Anxiety - Plan Plan: Continue current treatment. Continue to monitor behavior. Continue to monitor Vitals Safety precaution. Continue to follow up with psych. Nutritional Asmnt/Malnutr-PDOC - Dietary Evaluation Malnutrition Findings (Please click <Entered> for more info): Nutritional Asmnt/Malnutrition Start: 10/13/19 14: 20 Text: Status: Complete Freq: Protocol: Document 10/13/19 14:20 MACK (Rec: 10/13/19 14:24 [id number]) Nutritional Asmnt/Malnutrition Patient General Information Nutritional Screening Moderate Risk Diagnosis Psychosis Pertinent Medical Hx/Surgical Hx Dysphagia, Encephalopathy, Insomnia, Hyperlipidemia, Dementia, Schizophrenia, anxiety, Abdominal Hernia Sx Subjective Information Pt is a 59-year-old female admitted on 10/08 d/t increased agitation and verbal abusing snf staff. Pt is eating an estimated 90% of meals Per Meal/Nutrition Activity Record. Dietary is currently providing an estimated 2000 kcals and 100 gm Pro, per Pt PO intake this is providing an estimated 1800 kcals and 90gm Pro to meet 100+% kcal and 100+% Pro needs . Anthropometrics HT: 5 FT WT: 96 LB (43.64 kg) BMI: 18.78 (normal) GI/ Skin Integrity GI: WNL, Soft, Non-tender BM: 10/09 x1 I/O: 800/Not Noted Skin: WNL, Intact, Dryness Charlie: 18 Diet Order: Pureed Estimated Energy Needs: ( Geriatric, CBW) 5162-1634 kcals (25-30 kcals/ kg) 45-55g Pro (1.0-1.2 g/kg) 0222-7215 ml (25-30 ml/kg) Current Diet Order/ Nutrition Support Pureed Pertinent Medications Maalox (PRN), Vitamin C, Colace, MOM (PRN) Pertinent Labs 10/08: A1c 5.9%, AST 69, Cholesterol 245, LDL 120, Glucose 101, GFR 65 Nutritional Hx/Data Height 5 ft Height (Calculated Centimeters) 152.4 Current Weight (lbs) 96 lb Weight (Calculated Kilograms) 43.5 Weight (Calculated Grams) 29585.9 [place] Body Weight 100 LB (45.45 kg) % [place] Body Weight 96 Body Mass Index (BMI) 18.7 Weight Status Approriate GI Symptoms Last BM 10/09 x1 Skin Integrity/Comment: Skin: WNL, Intact, Dryness Charlie: 18 Estimated Nutritional Goals BEE in Kcals: Using Current wt Calories/Kcals/Kg 25-30 Kcals Calculated 1380-8235 Protein: Using Current wt Protein g/k.0-1.2 Protein Calculated 45-55 Fluid: ml 1802-7152 ml (25-30 ml/kg) Nutritional Problem 1. Problem Problem Altered nutrition related labs Etiology r/t endocrine dysfunction Signs/Symptoms: aeb labs (10/08) A1c 5.9%, AST 69, Cholesterol 245, LDL 120, Glucose 101, GFR 65. Intervention/Recommendation Comments Continue pureed diet as tolerated. Expected Outcomes/Goals Expected Outcomes/Goals 1.PO intake to continue to meet >75% of estimated nutritional needs. 2.Monitor PO intake, wt, nutrition related labs, and skin integrity. 3.F/U as low risk in 7-10 days , 10/19-10/22.
[2019-10-27] MEDS: Multivitamin w/ Minerals Tab PO SCH (08:30)
--- NOTE | 2019-10-27 10:32 | Progress Notes ---
DATE: 10/27/2019 SUBJECTIVE: Chart reviewed and the patient interviewed. Also discussed the patient's condition with the staff and reviewed records and labs. The patient's affect is brighter. The patient is less irritable and less agitated. She is also interacting more with peers and with others. I discussed with Denys in [facility] discharge plans and he agreed to take the patient back last week. TREATMENT PLAN: Planning to discharge the patient today with outpatient treatment and followup to continue as an outpatient. [facility]# [id number]
--- NOTE | 2019-10-27 14:21 | Internal Medicine Prog Note ---
Internal Medicine Subjective - Subjective Service Date: 10/27/19 Patient is:: awake, confused, other Per staff patient has:: no adverse event, no episodes of fall, unstable gait, confused, tolerating meds Internal Medicine Objective - Physical Exam Vitals and I&O: Vital Signs Temp 97.6 F 10/25/19 14:00 Pulse 84 10/25/19 14:00 Resp 20 10/27/19 07:18 BP 111/76 10/25/19 14:00 Pulse Ox 97 10/25/19 14:00 Intake & Output 10/26/19 10/27/19 10/27/19 18:59 06:59 18:59 Intake Total 1400 500 Balance 1400 500 Intake: Oral 1400 500 Other: # Voids 2 2 Active Medications: Current Medications Acetaminophen (Tylenol) 650 mg PO Q4H PRN PRN Reason: Pain (Mild 1-3) Stop: 12/08/19 22:10 Last Admin: 10/14/19 01:21 Dose: 650 mg Acetaminophen (Tylenol) 650 mg PO Q4H PRN PRN Reason: temp above 101 Stop: 12/08/19 23:25 Al Hydrox/Mg Hydrox/Simethicone (Maalox) 30 ml PO Q4HR PRN PRN Reason: GI DISTRESS Stop: 12/08/19 22:10 Ascorbic Acid (Vitamin C) 500 mg PO DAILY [facility] Stop: 12/09/19 08:59 Last Admin: 10/27/19 08:30 Dose: 500 mg Diphenhydramine HCl (Benadryl 50 Mg/Ml) 25 mg IM Q4HR PRN PRN Reason: EPS WITH HALDOL Stop: 12/20/19 09:03 Last Admin: 10/21/19 09:27 Dose: 25 mg Divalproex Sodium (Depakote Dr) 500 mg PO BID [facility]; Protocol Stop: 12/20/19 08:59 Last Admin: 10/27/19 08:30 Dose: 500 mg Docusate Sodium (Colace) 100 mg PO DAILY [facility] Stop: 12/09/19 08:59 Last Admin: 10/27/19 08:30 Dose: 100 mg Hydroxyzine Pamoate (Vistaril) 25 mg PO BID [facility]; Protocol Stop: 12/09/19 08:59 Last Admin: 10/27/19 08:30 Dose: 25 mg Lorazepam (Ativan) 0.5 mg PO Q4HR PRN; Protocol PRN Reason: Anxiety Stop: 12/16/19 13:21 Last Admin: 10/27/19 08:30 Dose: 0.5 mg Magnesium Hydroxide (Milk Of Magnesia) 30 ml PO HS PRN PRN Reason: Constipation Quetiapine Fumarate (Seroquel) 200 mg PO BID [facility] Stop: 12/19/19 08:59 Last Admin: 10/27/19 08:30 Dose: 200 mg Quetiapine Fumarate 200 mg/ (Quetiapine Fumarate 50 mg) 250 mg PO HS [facility] Stop: 12/20/19 20:59 Last Admin: 10/26/19 21:05 Dose: 250 mg Simvastatin (Zocor) 20 mg PO HS [facility]; Protocol Stop: 12/09/19 20:59 Last Admin: 10/26/19 21:05 Dose: 20 mg Zolpidem Tartrate (Ambien) 5 mg PO HS PRN PRN Reason: Insomnia Stop: 12/16/19 13:30 Last Admin: 10/24/19 21:08 Dose: 5 mg General: alert, demented HEENT: NC/AT Neck: Supple, No JVD Lungs: CTAB Cardiovascular: RRR Abdomen: soft, non-tender Extremities: clear Neurological: unsteady Internal Medicine Assmt/Plan - Assessment Assessment: agitation dysphagia insomnia hld unsteady gait dementia schizophrenia anxiety - Plan Plan: fall precaution monitor behavior Nutritional Asmnt/Malnutr-PDOC - Dietary Evaluation Malnutrition Findings (Please click <Entered> for more info): Nutritional Asmnt/Malnutrition Start: 10/13/19 14: 20 Text: Status: Complete Freq: Protocol: Document 10/13/19 14:20 MACK (Rec: 10/13/19 14:24 [id number]) Nutritional Asmnt/Malnutrition Patient General Information Nutritional Screening Moderate Risk Diagnosis Psychosis Pertinent Medical Hx/Surgical Hx Dysphagia, Encephalopathy, Insomnia, Hyperlipidemia, Dementia, Schizophrenia, anxiety, Abdominal Hernia Sx Subjective Information Pt is a 59-year-old female admitted on 10/08 d/t increased agitation and verbal abusing [facility]dc staff. Pt is eating an estimated 90% of meals Per Meal/Nutrition Activity Record. Dietary is currently providing an estimated 2000 kcals and 100 gm Pro, per Pt PO intake this is providing an estimated 1800 kcals and 90gm Pro to meet 100+% kcal and 100+% Pro needs . Anthropometrics HT: 5 FT WT: 96 LB (43.64 kg) BMI: 18.78 (normal) GI/ Skin Integrity GI: WNL, Soft, Non-tender BM: 10/09 x1 I/O: 800/Not Noted Skin: WNL, Intact, Dryness Charlie: 18 Diet Order: Pureed Estimated Energy Needs: ( Geriatric, CBW) 7618-9810 kcals (25-30 kcals/ kg) 45-55g Pro (1.0-1.2 g/kg) 9771-7059 ml (25-30 ml/kg) Current Diet Order/ Nutrition Support Pureed Pertinent Medications Maalox (PRN), Vitamin C, Colace, MOM (PRN) Pertinent Labs 10/08: A1c 5.9%, AST 69, Cholesterol 245, LDL 120, Glucose 101, GFR 65 Nutritional Hx/Data Height 5 ft Height (Calculated Centimeters) 152.4 Current Weight (lbs) 96 lb Weight (Calculated Kilograms) 43.5 Weight (Calculated Grams) 43157.9 [place] Body Weight 100 LB (45.45 kg) % [place] Body Weight 96 Body Mass Index (BMI) 18.7 Weight Status Approriate GI Symptoms Last BM 10/09 x1 Skin Integrity/Comment: Skin: WNL, Intact, Dryness Charlie: 18 Estimated Nutritional Goals BEE in Kcals: Using Current wt Calories/Kcals/Kg 25-30 Kcals Calculated 4382-9888 Protein: Using Current wt Protein g/k.0-1.2 Protein Calculated 45-55 Fluid: ml 7309-3173 ml (25-30 ml/kg) Nutritional Problem 1. Problem Problem Altered nutrition related labs Etiology r/t endocrine dysfunction Signs/Symptoms: aeb labs (10/08) A1c 5.9%, AST 69, Cholesterol 245, LDL 120, Glucose 101, GFR 65. Intervention/Recommendation Comments Continue pureed diet as tolerated. Expected Outcomes/Goals Expected Outcomes/Goals 1.PO intake to continue to meet >75% of estimated nutritional needs. 2.Monitor PO intake, wt, nutrition related labs, and skin integrity. 3.F/U as low risk in 7-10 days , 10/19-10/22.
== END 2019-10-27 17:00 | DRG 885 ==
LOC: GERO 19:39
PROVIDERS: ADMIT Psychiatry & Neurology Psychiatry; ATTEND Psychiatry & Neurology Psychiatry
DX: F25.0 Schizoaffective disorder, bipolar type (principal); F03.91 Unspecified dementia, unspecified severity, with behavioral disturbance; F41.9 Anxiety disorder, unspecified; R13.10 Dysphagia, unspecified; G47.00 Insomnia, unspecified; E78.5 Hyperlipidemia, unspecified; M10.9 Gout, unspecified; Z79.899 Other long term (current) drug therapy
CPT/HCPCS: 83036-90; 90899; G0410; J1200; J1630; J2060; Q0177; Z7610